=== PATIENT | female | born 1955 | race Caucasian/White ===

== ENCOUNTER 2017-08-14 12:23 | Inpatient (IN) | payer MEDICARE, MEDICAID ==
--- NOTE | 2017-08-14 12:39 | ED Physician Chart ---
ED Chief Complaint/HPI - Patient Information Date Seen:: 08/14/17 Time Seen:: 12:15 Chief Complaint:: Agitation History of Present Illness:: onset x 2 days of agitation and aggressive behavior; no report of trauma, SIs, H /As, S/T, neck pain, C/P, SOB, Abd. Pain, A/N/V/D/C, fever, chills, or urinary s /s Historian:: Patient, EMS Review:: Nurse's Note Reviewed, Old Chart Reviewed, EMS run form Reviewed ED Review of Systems - Review of Systems General/Constitutional: No fever, No chills, No weight loss, No weakness, No diaphoresis, No edema, No loss of appetite Skin: No skin lesions, No rash, No bruising Head: No headache, No light-headedness Eyes: No loss of vision, No pain, No diplopia ENT: No earache, No nasal drainage, No sore throat, No tinnitus Neck: No neck pain, No swelling, No thyromegaly, No stiffness, No mass noted Cardio Vascular: No chest pain, No palpitations, No PND, No orthopnea, No edema Pulmonary: No SOB, No cough, No sputum, No wheezing GI: No nausea, No vomiting, No diarrhea, No pain, No melena, No hematochezia, No constipation, No hematemesis G/U: No dysuria, No frequency, No hematuria, No nacturia Personal Shopper: No vaginal discharge, No abnormal vaginal bleed, No contraction Musculoskeletal: No bone or joint pain, No back pain, No muscle pain Endocrine: No polyuria, No polydipsia Psychiatric: Prior psych history, Depression, Anxiety, No suicidal ideation, No homicidal ideation, No auditory hallucination, No visual hallucination Hematopoietic: No bruising, No lymphadenopathy Allergic/Immuno: No urticaria, No angioedema Neurological: No syncope, No focal symptoms, No weakness, No paresthesia, No headache, No seizure, No dizziness, No confusion, No vertigo ED Past Medical History - Past Medical History Obtainable: Yes Past Medical History: HTN, DM, Dyslipidemia Family History: HTN Social History: Non Smoker, No Alcohol, No Drug Use, Single, Care Facility Surgical History: None Psychiatricy History: Depression, Bipolar Medication: Reviewed Family Medical History - Family Member Mother Brother History Unknown: Yes Ethnicity: Non- Living Status: Unknown ED Physical Exam - Physical Examination General/Constitutional: Awake, Well-developed, well-nourished, Alert, No distress, GCS 15, Non-toxic appearing, Ambulatory Head: Atraumatic Eyes: Lids, conjuctiva normal, PERRL, EOMI Skin: Nl inspection, No rash, No skin lesions, No ecchymosis, Well hydrated, No lymphadenopathy ENMT: External ears, nose nl, TM canals nl, Nasal exam nl, Lips, teeth, gums nl , Oropharynx nl, Tonsils nl Neck: Nontender, Full ROM w/o pain, No JVD, No nuchal rigidity, No bruit, No mass, No stridor Respiratory: Nl effort/Exclusion, Clear to Auscultation, No Wheeze/Rhonchi/Rales Cardio Vascular: RRR, No murmur, gallop, rubs, NL S1 S2, Carotid/Femoral/Distal pulses equal bilaterally GI: No tenderness/rebounding/guarding, No organomegaly, No hernia, Normal BS's, Nondistended, No mass/bruits, No McBurney tenderness Other GI comments:: no pulsatile masses : No CVA tenderness Extremities: No tenderness or effusion, Full ROM, normal strength in all extremities, No edema, Normal digits & nails Neuro/Psych: Alert/oriented, DTR's symmetric, Normal sensory exam, Normal motor strength, Judgement/insight normal, Mood normal, Normal gait, No focal deficits Other Neuro/Psych comments:: + Psychomotor Agitation; no SIs; Mood/Affect: Labile Misc: Normal back, No paraspinal tenderness ED Labs/Radiology/EKG Results - Lab Results Comments:: Glucose: 259 - EKG Interpretations EKG Time:: 12:40 Rate & Rhythm: 78; NSR Comments:: RBBB; non-specific st-t changes ED Septic Shock - . Is Septic Shock (SBP<90, OR Lactate>4 mmol\L) present?: No ED Reassessment (Disposition) - Diagnosis Diagnosis:: Dx: Agitation; Psychosis; Medical Clearance; Bipolar Disorder - Aftercare/Follow up Instructions Aftercare/Follow-Up Instructions:: Counseled pt regarding lab results/diagnosis & need follow up, Counseled pt & family regarding lab results/diagnosis & need follow up - Patient Disposition Discharge/Transfer:: Acute Care w/in this hosp Admitted to:: [facility] Condition at Disposition:: Stable, Improved
[2017-08-14 12:55] LABS: % BASOPHILS 0.9 % (0.0-2.0); % EOSINOPHILS 2.7 % (0.0-5.0); % LYMPHOCYTES 19.5 % (20.0-50.0); % MONOCYTES 4.8 % (2.0-10.0); % NEUTROPHILS 72.1 % (40.0-80.0); BASOPHILE ABSOLUTE 0.1 Th/cumm (0-0.2); EOSINOPHILE ABSOLUTE 0.2 Th/cmm (0.1-0.4); HEMATOCRIT 42.3 % (41.0-60); HEMOGLOBIN 14.1 gm/dL (12-16); LYMPHOCYTE ABSOLUTE 1.8 Th/cmm (1.5-3.0); MEAN CORPUSCULAR HGB CONC 33.4 pg (28.0-36.0); MONOCYTE ABSOLUTE 0.4 Th/cmm (0.3-1.0); NEUTROPHILE ABSOLUTE 6.7 Th/cmm (1.8-8.0); PLATELET COUNT 243 Th/cmm (150-400); RED BLOOD COUNT 5.22 Mil/cmm (3.80-5.10); RED CELL DISTRIBUTION WIDTH 12.6 % (11.5-20.0); WHITE BLOOD COUNT 9.2 Th/cmm (4.8-10.8)
[2017-08-14 13:17] LABS: ACETAMINOPHEN < 10.0 ug/mL (10.0-30.0); ALB/GLOB RATIO 0.9 (1.0-1.8); ALBUMIN 3.4 gm/dL (3.7-5.3); ALKALINE PHOSPHATASE 99 U/L (34-104); ANION GAP 10.7 (7.0-16.0); BILIRUBIN,TOTAL 0.3 mg/dL (0.3-1.0); BUN - UREA NITROGEN 20 mg/dL (7-25); CALCIUM SERUM 9.5 mg/dL (8.6-10.3); CARBON DIOXIDE 26.5 mEq/L (21.0-31.0); CHLORIDE 101 mEq/L (98-107); CHOLESTEROL 104 mg/dL (<200); GFR AFRICAN-AMERICAN > 60.0 ml/min (>90); GFR NON AFRICAN-AMERICAN 59.9 ml/min; GLUCOSE 259 mg/dL (70-105); HDL -HIGH DENSITY LIPOPROTEIN 35 mg/dL (23-92); POTASSIUM SERUM 4.2 mEq/L (3.5-5.1); SALICYLATES (ASPIRIN) < 25.0 mg/L (30.0-100.0); SGOT 40 U/L (13-39); SGPT/ALT 42 U/L (7-52); SODIUM SERUM 134 mEq/L (136-145); TRIGLYCERIDES 128 mg/dL (<150)
[2017-08-14 14:57] LABS: URINE MICROSCOPIC INDICATED? YES; URINE SOURCE CLEAN C
[2017-08-14 15:22] LABS: URINE BILIRUBIN NEGATIVE (NEGATIVE); URINE BLOOD NEGATIVE (NEGATIVE); URINE GLUCOSE (UA) NEGATIVE (NEGATIVE); URINE KETONE NEGATIVE (NEGATIVE); URINE LEUKOCYTE ESTERASE NEGATIVE (NEGATIVE); URINE NITRATE NEGATIVE (NEGATIVE); URINE PROTEIN NEGATIVE (NEGATIVE); URINE UROBILINOGEN 0.2 E.U./dL (0.2 - 1.0)
[2017-08-14 15:23] LABS: AMPHETAMINE URINE NEGATIVE (NEGATIVE); BARBITURATES URINE NEGATIVE (NEGATIVE); BENZODIAZEPINES QUAL URINE NEGATIVE (NEGATIVE); CANNABINOID THC NEGATIVE (NEGATIVE); COCAINE METABOLITE QUAL URINE NEGATIVE (NEGATIVE); METHADONE URINE NEGATIVE (NEGATIVE); METHAMPHETAMINES QUAL URINE NEGATIVE (NEGATIVE); OPIATES (MORPHINE) QUAL. URINE NEGATIVE (NEGATIVE); PHENCYCLIDINE (PCP) URINE NEGATIVE (NEGATIVE); TRICYCLICS (TCA) QUAL. URINE NEGATIVE (NEGATIVE)
[2017-08-14 15:26] LABS: URINE CLARITY CLEAR (CLEAR); URINE COLOR YELLOW
[2017-08-14 15:27] LABS: URINE BACTERIA NONE SEEN /hpf (NONE SEEN); URINE EPITHELIAL CELLS RARE /lpf (FEW); URINE RBC 0-2 /hpf (0-5); URINE WBC 0-2 /hpf (0-5)
[2017-08-14 15:29] VITALS: BP 156/71
[2017-08-14] MEDS ORDERED: Maalox 30 mL Cup PO PRN (15:29)
[2017-08-14] MEDS ORDERED: Magnesium Hydroxide (MOM) 30 mL UDC PO PRN (15:29)
[2017-08-14 20:42] LABS: A1C % 11.1 % (4.0-6.0)
[2017-08-14] MEDS ORDERED: INSULIN ASPART SLIDING SCALE 100 UNITS/ML UNIT SUBQ SCH (21:00)
--- NOTE | 2017-08-14 21:09 | History & Physical ---
ADMIT DATE: HISTORY OF PRESENT ILLNESS: The patient is a 61-year-old female with long history of diabetes mellitus, psychosis, admitted to [facility] with agitation. The patient is admitted to [facility] under Dr. Cabral's service for more evaluation and treatment. There is no fever, no chills, no nausea, no vomiting. The patient is a poor historian. PAST MEDICAL HISTORY: Significant for diabetes mellitus and psychosis. PAST SURGICAL HISTORY: No recent surgery. ALLERGIES: None. MEDICATIONS: Follow admission reconciliation. SOCIAL HISTORY: No smoking, no alcohol, no drug. FAMILY HISTORY: Noncontributory. REVIEW OF SYSTEMS: RENAL SYSTEM: No history of chronic renal disorder. CARDIOVASCULAR SYSTEM: No coronary artery disease. ENDOCRINE SYSTEM: No diabetes or thyroid problem. GASTROINTESTINAL SYSTEM: No upper or lower gastrointestinal bleed. NEUROLOGICAL SYSTEM: Seizure disorder. SKELETOMUSCULAR SYSTEM: No muscular dystrophy. HEMATOLOGIC SYSTEM: No bleeding tendency. RESPIRATORY SYSTEM: No asthma. GENITOURINARY SYSTEM: No dysuria or hematuria. PHYSICAL EXAMINATION: GENERAL: She is awake, alert, not coherent. VITAL SIGNS: Temperature 96.8, heart rate 88, blood pressure 156/71. HEENT: Normocephalic. Pupils reactive to light and accommodation. Sclerae clear. NECK: Supple. Negative for lymphadenopathy, JVD or bruit. CHEST: Air entry bilaterally normal. No rales, rhonchi or wheezing. HEART: S1, S2 normal. No murmur. No gallop rhythm. ABDOMEN: Soft, bowel sounds positive. EXTREMITIES: No edema. NEUROLOGIC: She is awake, alert, confused. LABORATORY DATA: White blood cells 9.2, hemoglobin 14.1, hematocrit 42.3, platelet 243. Sodium 134, potassium 4.2, BUN 20, creatinine 1.0, glucose 257. ASSESSMENT: 1. Diabetes mellitus. 2. Hypertension. 3. Psychosis. PLAN: The patient admitted to [facility] under Dr. Cabral's service. PROBLEMS ADDRESSED DURING HOSPITALIZATION: Psychosis. PROBLEMS ADDRESSED AT DISCHARGE: Diabetes mellitus. The patient is medically stable for activity. Thank you, Dr. Cabral, for asking me to see your patient. JOB# [id number]
[2017-08-14] MEDS: INSULIN ASPART SLIDING SCALE 100 UNITS/ML UNIT SUBQ SCH (21:28)
[2017-08-14] MEDS: Insulin Detemir 100 units/mL 10mL Vial SUBQ SCH (21:29)
--- NOTE | 2017-08-14 22:42 | Psychosocial Evaluation ---
DATE OF SERVICE: 08/14/2017 PSYCHIATRIC EVALUATION IDENTIFYING DATA: The patient is a 61-year-old woman, resident of [facility]. Information obtained by directly interviewing the patient as well as reviewing the admission papers and they are reliable. JUSTIFICATION FOR HOSPITALIZATION: The patient is admitted here on a voluntary basis in view of her acute psychosis. CHIEF COMPLAINT: "I do not know." HISTORY OF PRESENT ILLNESS: This is the first psychiatric hospitalization to [facility] for this patient who is reported to have been a resident of the [facility] and has been diagnosed to have schizophrenia, chronic paranoid type for a long period of time. During the hospitalization, the patient is reported to have been verbally abusive and agitated and could not be contained at a lower level of care and the patient has been brought over here for stabilization. Prior to the hospitalization, the patient is reported to have been followed up by Dr. Pablo at [facility] and has been on Zyprexa 10 mg and the patient has been compliant with the medications. PAST PSYCHIATRIC HISTORY: Details are not known. MEDICAL HISTORY: Physical examination is requested and done by Dr. Ramesh. SUBSTANCE ABUSE HISTORY: None. PHYSICAL AND SEXUAL ABUSE HISTORY: None. LEGAL PROBLEMS: None at this time. STRENGTH AND ASSETS: The patient is motivated. MENTAL STATUS EXAMINATION: The patient is a 61-year-old morbidly obese, superficially cooperative. Eye contact is poor. Mood is noted to be irritable. Affect is constricted. Insight and judgment at this time are noted to be very much impaired. Impulse control is noted to be limited. The patient is still testing the limits. The patient is actively responding to internal stimuli. The patient is not able to contract for safety. The patient is reported to have been in a conservatorship. The patient at this time is not able to contract for safety. The patient is screaming and yelling and has been getting easily agitated and verbally abusive towards the staff members. The patient has no insight into his illness. The patient's short and long-term memory are noted to be fair at this time. DIAGNOSTIC IMPRESSION: AXIS I: Schizophrenia, chronic paranoid type with acute exacerbation. AXIS II: None. AXIS III: As per Dr. Ramesh. IMMEDIATE TREATMENT PLAN: The patient is going to be observed on the inpatient unit, provided with supportive psychotherapy. ESTIMATED LENGTH OF STAY: 5-7 days. DISCHARGE CRITERIA: When she is no longer a threat to self or others and be able to cope up with the stress. [facility]# [id number]
[2017-08-15] MEDS: INSULIN ASPART SLIDING SCALE 100 UNITS/ML UNIT SUBQ SCH ×4 (07:04→21:55)
[2017-08-15] MEDS: Multivitamin Tab PO SCH (09:54)
[2017-08-15] MEDS: Aspirin 81mg Chewable Tab PO SCH (09:54)
[2017-08-15] MEDS: Benztropine 1 MG TAB PO SCH ×2 (10:00→17:55)
--- NOTE | 2017-08-15 15:24 | Progress Notes ---
DATE: 08/15/2017 SUBJECTIVE: Staff was spoken to. The patient is interviewed. Mood is noted to be irritable. Affect is constricted. Insight and judgment at this time are noted to be still impaired. Impulse control is noted to be limited. Coping skills are noted to be limited. The patient is actively responding to internal stimuli. The patient is refusing the blood sugar check and the patient has no insight into her illness. The patient is going on a tangent and is demanding that she should be discharged from here. The patient is very agitated at this time and hence it is decided to give 50 of Haldol, 50 of Benadryl and Ativan 1 in case if she is getting out of control. JOB# [id number]
--- NOTE | 2017-08-15 15:31 | Internal Medicine Prog Note ---
Internal Medicine Subjective - Subjective Service Date: 08/15/17 Patient is:: awake, in bed, confused Per staff patient has:: no adverse event Internal Medicine Objective - Results Result Diagrams: 08/14/17 12:45 08/14/17 12:45 Recent Labs: Laboratory Last Values WBC 9.2 Th/cmm (4.8-10.8) 08/14/17 12:45 RBC 5.22 Mil/cmm (3.80-5.10) H 08/14/17 12:45 Hgb 14.1 gm/dL (12-16) 08/14/17 12:45 Hct 42.3 % (41.0-60) 08/14/17 12:45 MCV 81.0 fl (81-100) 08/14/17 12:45 MCH 27.0 pg (27.0-31.0) 08/14/17 12:45 MCHC Differential 33.4 pg (28.0-36.0) 08/14/17 12:45 RDW 12.6 % (11.5-20.0) 08/14/17 12:45 Plt Count 243 Th/cmm (150-400) 08/14/17 12:45 MPV 7.0 fl 08/14/17 12:45 Neutrophils % 72.1 % (40.0-80.0) 08/14/17 12:45 Lymphocytes % 19.5 % (20.0-50.0) L 08/14/17 12:45 Monocytes % 4.8 % (2.0-10.0) 08/14/17 12:45 Eosinophils % 2.7 % (0.0-5.0) 08/14/17 12:45 Basophils % 0.9 % (0.0-2.0) 08/14/17 12:45 Sodium 134 mEq/L (136-145) L 08/14/17 12:45 Potassium 4.2 mEq/L (3.5-5.1) 08/14/17 12:45 Chloride 101 mEq/L (98-107) 08/14/17 12:45 Carbon Dioxide 26.5 mEq/L (21.0-31.0) 08/14/17 12:45 Anion Gap 10.7 (7.0-16.0) 08/14/17 12:45 BUN 20 mg/dL (7-25) 08/14/17 12:45 Creatinine 1.0 mg/dL (0.6-1.2) 08/14/17 12:45 Est GFR ( Amer) > 60.0 ml/min (>90) 08/14/17 12:45 Est GFR (Non-Af Amer) 59.9 ml/min 08/14/17 12:45 BUN/Creatinine Ratio 20.0 08/14/17 12:45 Glucose 259 mg/dL (70-105) H 08/14/17 12:45 POC Glucose 225 MG/DL (70 - 105) H 08/15/17 11:30 Hemoglobin A1c % 11.1 % (4.0-6.0) H 08/14/17 12:45 Calcium 9.5 mg/dL (8.6-10.3) 08/14/17 12:45 Total Bilirubin 0.3 mg/dL (0.3-1.0) 08/14/17 12:45 AST 40 U/L (13-39) H 08/14/17 12:45 ALT 42 U/L (7-52) 08/14/17 12:45 Alkaline Phosphatase 99 U/L (34-104) 08/14/17 12:45 Total Protein 7.0 gm/dL (6.0-8.3) 08/14/17 12:45 Albumin 3.4 gm/dL (3.7-5.3) L 08/14/17 12:45 Globulin 3.6 gm/dL 08/14/17 12:45 Albumin/Globulin Ratio 0.9 (1.0-1.8) L 08/14/17 12:45 Triglycerides 128 mg/dL (<150) 08/14/17 12:45 Cholesterol 104 mg/dL (<200) 08/14/17 12:45 LDL Cholesterol Direct 57 mg/dL (75-193) L 08/14/17 12:45 HDL Cholesterol 35 mg/dL (23-92) 08/14/17 12:45 TSH 3.25 uIU/ml (0.34-5.60) 08/14/17 12:45 Urine Source CLEAN C 08/14/17 13:50 Urine Color YELLOW 08/14/17 13:50 Urine Clarity CLEAR (CLEAR) 08/14/17 13:50 Urine pH 6.0 (4.6 - 8.0) 08/14/17 13:50 Ur Specific [place] 1.010 (1.005-1.030) 08/14/17 13:50 Urine Protein NEGATIVE mg/dL (NEGATIVE) 08/14/17 13:50 Urine Glucose (UA) NEGATIVE mg/dL (NEGATIVE) 08/14/17 13:50 Urine Ketones NEGATIVE mg/dL (NEGATIVE) 08/14/17 13:50 Urine Blood NEGATIVE (NEGATIVE) 08/14/17 13:50 Urine Nitrate NEGATIVE (NEGATIVE) 08/14/17 13:50 Urine Bilirubin NEGATIVE (NEGATIVE) 08/14/17 13:50 Urine Urobilinogen 0.2 E.U./dL (0.2 - 1.0) 08/14/17 13:50 Ur Leukocyte Esterase NEGATIVE (NEGATIVE) 08/14/17 13:50 Urine RBC 0-2 /hpf (0-5) 08/14/17 13:50 Urine WBC 0-2 /hpf (0-5) 08/14/17 13:50 Ur Epithelial Cells RARE /lpf (FEW) 08/14/17 13:50 Urine Bacteria NONE SEEN /hpf (NONE SEEN) 08/14/17 13:50 Salicylates < 25.0 mg/L (30.0-100.0) L 08/14/17 12:45 Urine Opiates Screen NEGATIVE (NEGATIVE) 08/14/17 13:50 Urine Methadone Screen NEGATIVE (NEGATIVE) 08/14/17 13:50 Acetaminophen < 10.0 ug/mL (10.0-30.0) L 08/14/17 12:45 Ur Barbiturates Screen NEGATIVE (NEGATIVE) 08/14/17 13:50 Ur Tricyclics Screen NEGATIVE (NEGATIVE) 08/14/17 13:50 Ur Phencyclidine Scrn NEGATIVE (NEGATIVE) 08/14/17 13:50 Amphetamines Screen NEGATIVE (NEGATIVE) 08/14/17 13:50 U Methamphetamines Scrn NEGATIVE (NEGATIVE) 08/14/17 13:50 U Benzodiazepines Scrn NEGATIVE (NEGATIVE) 08/14/17 13:50 U Cocaine Metab Screen NEGATIVE (NEGATIVE) 08/14/17 13:50 U Cannabinoids Screen NEGATIVE (NEGATIVE) 08/14/17 13:50 Ethyl Alcohol < 10 mg/dL (0-10) 08/14/17 12:45 - Physical Exam Vitals and I&O: Vital Signs Temp 97.2 F 08/15/17 05:57 Pulse 73 08/15/17 09:54 Resp 20 08/15/17 05:57 BP 123/74 08/15/17 09:54 Pulse Ox 97 08/15/17 05:57 Intake & Output 08/14/17 08/15/17 08/15/17 18:59 06:59 18:59 Intake Total 450 660 Balance 450 660 Weight (lbs) 136.078 kg Intake: Oral 450 660 Other: # Voids 2 Weight Source Estimated Active Medications: Current Medications Acetaminophen (Tylenol) 650 mg PO Q4HR PRN PRN Reason: Mild Pain / Temp above 100 Stop: 10/13/17 15:28 Al Hydrox/Mg Hydrox/Simethicone (Maalox) 30 ml PO Q4HR PRN PRN Reason: GI DISTRESS Stop: 10/13/17 15:28 Aspirin (Aspirin Chewable) 81 mg PO DAILY [facility] Stop: 10/14/17 08:59 Last Admin: 08/15/17 09:54 Dose: 81 mg Benztropine Mesylate (Cogentin) 1 mg PO BID [facility] Stop: 10/14/17 08:59 Last Admin: 08/15/17 10:00 Dose: 1 mg Docusate Sodium (Colace) 100 mg PO BID [facility] Stop: 10/14/17 08:59 Last Admin: 08/15/17 09:53 Dose: 100 mg Glipizide (Glucotrol) 5 mg PO BIDWM [facility] Stop: 10/14/17 07:59 Last Admin: 08/15/17 09:00 Dose: 5 mg Insulin Aspart (Novolog Insulin Sliding Scale) 0 units SUBQ ACHS [facility]; Protocol Stop: 10/13/17 20:59 Last Admin: 08/15/17 11:40 Dose: 6 units Insulin Detemir (Levemir Insulin) 25 units SUBQ HS [facility]; Protocol Stop: 10/13/17 20:59 Last Admin: 08/14/17 21:29 Dose: 25 units Lorazepam (Ativan) 0.5 mg PO Q4HR PRN; Protocol PRN Reason: anxiety Stop: 10/13/17 15:33 Magnesium Hydroxide (Milk Of Magnesia) 30 ml PO HS PRN PRN Reason: Constipation Multivitamins/Vitamin C (Theragran) 1 tab PO DAILY [facility] Stop: 10/14/17 08:59 Last Admin: 08/15/17 09:54 Dose: 1 tab Olanzapine (Zyprexa) 10 mg PO Q12HR [facility]; Protocol Stop: 10/13/17 20:59 Sitagliptin Phosphate (Januvia) 25 mg PO DAILY [facility] Stop: 10/14/17 08:59 Last Admin: 08/15/17 09:53 Dose: 25 mg Valsartan (Diovan) 80 mg PO DAILY [facility] Stop: 10/14/17 08:59 Last Admin: 08/15/17 09:54 Dose: 80 mg Zolpidem Tartrate (Ambien) 5 mg PO HS PRN PRN Reason: Insomnia Stop: 10/13/17 15:28 Last Admin: 08/14/17 21:32 Dose: 5 mg General: demented HEENT: PERRLA, EOMI, anicteric sclerae, throat clear Neck: Supple, No JVD, No thyromegaly, +2 carotid pulse wo bruit, No LAD Lungs: CTAB Cardiovascular: RRR, Normal S1, Normal S2, without murmur Abdomen: non-tender, non-distended Extremities: clear Neurological: no change Internal Medicine Assmt/Plan - Assessment Assessment: 1.DM. 2.HTN. 3.DEMENTIA. - Plan Plan: CONTINUE ON CURRENT MEDICATION AND DIET.
[2017-08-15] MEDS: Insulin Detemir 100 units/mL 10mL Vial SUBQ SCH (21:56)
[2017-08-16] MEDS: INSULIN ASPART SLIDING SCALE 100 UNITS/ML UNIT SUBQ SCH ×3 (06:52→22:26)
[2017-08-16] MEDS: Multivitamin Tab PO SCH (09:44)
[2017-08-16] MEDS: Benztropine 1 MG TAB PO SCH ×2 (09:44→16:36)
[2017-08-16] MEDS: Aspirin 81mg Chewable Tab PO SCH (09:44)
--- NOTE | 2017-08-16 13:43 | Progress Notes ---
DATE: 08/16/2017 SUBJECTIVE: Staff was spoken to. The patient is interviewed. Mood is noted to be irritable. Affect is constricted. The patient's insight and judgment are noted to be still impaired. Impulse control is very limited. The patient has been taking her clothes off and has been lying down on the bed and actively responding to internal stimuli. The patient has no insight into her illness. The patient is screaming and yelling and getting angry at her family member for sending her over here. ASSESSMENT: The patient is still impulsive and psychotic. PLAN: To continue the patient with the supportive therapy. Encouraged the patient to verbalize the concerns rather than to act out. The patient is not ready to be discharged to a lower level of care in view of her psychosis. JOB# [id number]
--- NOTE | 2017-08-16 17:27 | Internal Medicine Prog Note ---
Internal Medicine Subjective - Subjective Service Date: 08/16/17 Patient seen and examined:: with staff Patient is:: awake, in bed, confused Per staff patient has:: no adverse event Internal Medicine Objective - Results Result Diagrams: 08/14/17 12:45 08/14/17 12:45 Recent Labs: Laboratory Last Values WBC 9.2 Th/cmm (4.8-10.8) 08/14/17 12:45 RBC 5.22 Mil/cmm (3.80-5.10) H 08/14/17 12:45 Hgb 14.1 gm/dL (12-16) 08/14/17 12:45 Hct 42.3 % (41.0-60) 08/14/17 12:45 MCV 81.0 fl (81-100) 08/14/17 12:45 MCH 27.0 pg (27.0-31.0) 08/14/17 12:45 MCHC Differential 33.4 pg (28.0-36.0) 08/14/17 12:45 RDW 12.6 % (11.5-20.0) 08/14/17 12:45 Plt Count 243 Th/cmm (150-400) 08/14/17 12:45 MPV 7.0 fl 08/14/17 12:45 Neutrophils % 72.1 % (40.0-80.0) 08/14/17 12:45 Lymphocytes % 19.5 % (20.0-50.0) L 08/14/17 12:45 Monocytes % 4.8 % (2.0-10.0) 08/14/17 12:45 Eosinophils % 2.7 % (0.0-5.0) 08/14/17 12:45 Basophils % 0.9 % (0.0-2.0) 08/14/17 12:45 Sodium 134 mEq/L (136-145) L 08/14/17 12:45 Potassium 4.2 mEq/L (3.5-5.1) 08/14/17 12:45 Chloride 101 mEq/L (98-107) 08/14/17 12:45 Carbon Dioxide 26.5 mEq/L (21.0-31.0) 08/14/17 12:45 Anion Gap 10.7 (7.0-16.0) 08/14/17 12:45 BUN 20 mg/dL (7-25) 08/14/17 12:45 Creatinine 1.0 mg/dL (0.6-1.2) 08/14/17 12:45 Est GFR ( Amer) > 60.0 ml/min (>90) 08/14/17 12:45 Est GFR (Non-Af Amer) 59.9 ml/min 08/14/17 12:45 BUN/Creatinine Ratio 20.0 08/14/17 12:45 Glucose 259 mg/dL (70-105) H 08/14/17 12:45 POC Glucose 155 MG/DL (70 - 105) H 08/15/17 17:03 Hemoglobin A1c % 11.1 % (4.0-6.0) H 08/14/17 12:45 Calcium 9.5 mg/dL (8.6-10.3) 08/14/17 12:45 Total Bilirubin 0.3 mg/dL (0.3-1.0) 08/14/17 12:45 AST 40 U/L (13-39) H 08/14/17 12:45 ALT 42 U/L (7-52) 08/14/17 12:45 Alkaline Phosphatase 99 U/L (34-104) 08/14/17 12:45 Total Protein 7.0 gm/dL (6.0-8.3) 08/14/17 12:45 Albumin 3.4 gm/dL (3.7-5.3) L 08/14/17 12:45 Globulin 3.6 gm/dL 08/14/17 12:45 Albumin/Globulin Ratio 0.9 (1.0-1.8) L 08/14/17 12:45 Triglycerides 128 mg/dL (<150) 08/14/17 12:45 Cholesterol 104 mg/dL (<200) 08/14/17 12:45 LDL Cholesterol Direct 57 mg/dL (75-193) L 08/14/17 12:45 HDL Cholesterol 35 mg/dL (23-92) 08/14/17 12:45 TSH 3.25 uIU/ml (0.34-5.60) 08/14/17 12:45 Urine Source CLEAN C 08/14/17 13:50 Urine Color YELLOW 08/14/17 13:50 Urine Clarity CLEAR (CLEAR) 08/14/17 13:50 Urine pH 6.0 (4.6 - 8.0) 08/14/17 13:50 Ur Specific [place] 1.010 (1.005-1.030) 08/14/17 13:50 Urine Protein NEGATIVE mg/dL (NEGATIVE) 08/14/17 13:50 Urine Glucose (UA) NEGATIVE mg/dL (NEGATIVE) 08/14/17 13:50 Urine Ketones NEGATIVE mg/dL (NEGATIVE) 08/14/17 13:50 Urine Blood NEGATIVE (NEGATIVE) 08/14/17 13:50 Urine Nitrate NEGATIVE (NEGATIVE) 08/14/17 13:50 Urine Bilirubin NEGATIVE (NEGATIVE) 08/14/17 13:50 Urine Urobilinogen 0.2 E.U./dL (0.2 - 1.0) 08/14/17 13:50 Ur Leukocyte Esterase NEGATIVE (NEGATIVE) 08/14/17 13:50 Urine RBC 0-2 /hpf (0-5) 08/14/17 13:50 Urine WBC 0-2 /hpf (0-5) 08/14/17 13:50 Ur Epithelial Cells RARE /lpf (FEW) 08/14/17 13:50 Urine Bacteria NONE SEEN /hpf (NONE SEEN) 08/14/17 13:50 Salicylates < 25.0 mg/L (30.0-100.0) L 08/14/17 12:45 Urine Opiates Screen NEGATIVE (NEGATIVE) 08/14/17 13:50 Urine Methadone Screen NEGATIVE (NEGATIVE) 08/14/17 13:50 Acetaminophen < 10.0 ug/mL (10.0-30.0) L 08/14/17 12:45 Ur Barbiturates Screen NEGATIVE (NEGATIVE) 08/14/17 13:50 Ur Tricyclics Screen NEGATIVE (NEGATIVE) 08/14/17 13:50 Ur Phencyclidine Scrn NEGATIVE (NEGATIVE) 08/14/17 13:50 Amphetamines Screen NEGATIVE (NEGATIVE) 08/14/17 13:50 U Methamphetamines Scrn NEGATIVE (NEGATIVE) 08/14/17 13:50 U Benzodiazepines Scrn NEGATIVE (NEGATIVE) 08/14/17 13:50 U Cocaine Metab Screen NEGATIVE (NEGATIVE) 08/14/17 13:50 U Cannabinoids Screen NEGATIVE (NEGATIVE) 08/14/17 13:50 Ethyl Alcohol < 10 mg/dL (0-10) 08/14/17 12:45 - Physical Exam Vitals and I&O: Vital Signs Temp 98.2 F 08/16/17 15:00 Pulse 86 08/16/17 15:00 Resp 18 08/16/17 15:00 BP 128/77 08/16/17 15:00 Pulse Ox 97 08/16/17 15:00 Intake & Output 08/15/17 08/16/17 08/16/17 18:59 06:59 18:59 Intake Total 1200 450 Balance 1200 450 Intake: Oral 1200 450 Other: # Voids 3 1 # Bowel Movements 1 Active Medications: Current Medications Acetaminophen (Tylenol) 650 mg PO Q4HR PRN PRN Reason: Mild Pain / Temp above 100 Stop: 10/13/17 15:28 Al Hydrox/Mg Hydrox/Simethicone (Maalox) 30 ml PO Q4HR PRN PRN Reason: GI DISTRESS Stop: 10/13/17 15:28 Aspirin (Aspirin Chewable) 81 mg PO DAILY [facility] Stop: 10/14/17 08:59 Last Admin: 08/16/17 09:44 Dose: 81 mg Benztropine Mesylate (Cogentin) 1 mg PO BID [facility] Stop: 10/14/17 08:59 Last Admin: 08/16/17 16:36 Dose: 1 mg Docusate Sodium (Colace) 100 mg PO BID [facility] Stop: 10/14/17 08:59 Last Admin: 08/16/17 16:37 Dose: 100 mg Glipizide (Glucotrol) 5 mg PO BIDWM [facility] Stop: 10/14/17 07:59 Last Admin: 08/16/17 09:44 Dose: Not Given Insulin Aspart (Novolog Insulin Sliding Scale) 0 units SUBQ ACHS [facility]; Protocol Stop: 10/13/17 20:59 Last Admin: 08/16/17 12:12 Dose: 12 units Insulin Detemir (Levemir Insulin) 25 units SUBQ HS [facility]; Protocol Stop: 10/13/17 20:59 Last Admin: 08/15/17 21:56 Dose: 25 units Lorazepam (Ativan) 0.5 mg PO Q4HR PRN; Protocol PRN Reason: anxiety Stop: 10/13/17 15:33 Last Admin: 08/15/17 17:55 Dose: 0.5 mg Magnesium Hydroxide (Milk Of Magnesia) 30 ml PO HS PRN PRN Reason: Constipation Multivitamins/Vitamin C (Theragran) 1 tab PO DAILY [facility] Stop: 10/14/17 08:59 Last Admin: 08/16/17 09:44 Dose: 1 tab Olanzapine (Zyprexa) 10 mg PO Q12HR [facility]; Protocol Stop: 10/13/17 20:59 Last Admin: 08/16/17 09:44 Dose: 10 mg Sitagliptin Phosphate (Januvia) 25 mg PO DAILY [facility] Stop: 10/14/17 08:59 Last Admin: 08/16/17 09:44 Dose: 25 mg Valsartan (Diovan) 80 mg PO DAILY [facility] Stop: 10/14/17 08:59 Last Admin: 08/16/17 09:44 Dose: Not Given Zolpidem Tartrate (Ambien) 5 mg PO HS PRN PRN Reason: Insomnia Stop: 10/13/17 15:28 Last Admin: 08/15/17 21:16 Dose: 5 mg General: demented HEENT: PERRLA, EOMI, anicteric sclerae, throat clear Neck: Supple, No JVD, No thyromegaly, +2 carotid pulse wo bruit, No LAD Lungs: CTAB Cardiovascular: RRR, Normal S1, Normal S2, without murmur Abdomen: non-tender, non-distended Extremities: clear Neurological: no change Internal Medicine Assmt/Plan - Assessment Assessment: 1.DM. 2.HTN. 3.DEMENTIA. - Plan Plan: CONTINUE ON CURRENT MEDICATION AND DIET.
[2017-08-16] MEDS: Insulin Detemir 100 units/mL 10mL Vial SUBQ SCH (22:27)
[2017-08-17] MEDS: INSULIN ASPART SLIDING SCALE 100 UNITS/ML UNIT SUBQ SCH ×5 (07:19→21:27)
[2017-08-17] MEDS: Benztropine 1 MG TAB PO SCH ×2 (08:23→17:21)
[2017-08-17] MEDS: Aspirin 81mg Chewable Tab PO SCH (08:23)
[2017-08-17] MEDS: Multivitamin Tab PO SCH (08:24)
[2017-08-17] MEDS: Insulin Detemir 100 units/mL 10mL Vial SUBQ SCH (21:28)
--- NOTE | 2017-08-17 23:31 | Internal Medicine Prog Note ---
Internal Medicine Subjective - Subjective Service Date: 08/17/17 Patient seen and examined:: without staff Patient is:: awake, in bed, confused Per staff patient has:: no adverse event Internal Medicine Objective - Results Result Diagrams: 08/14/17 12:45 08/14/17 12:45 Recent Labs: Laboratory Last Values WBC 9.2 Th/cmm (4.8-10.8) 08/14/17 12:45 RBC 5.22 Mil/cmm (3.80-5.10) H 08/14/17 12:45 Hgb 14.1 gm/dL (12-16) 08/14/17 12:45 Hct 42.3 % (41.0-60) 08/14/17 12:45 MCV 81.0 fl (81-100) 08/14/17 12:45 MCH 27.0 pg (27.0-31.0) 08/14/17 12:45 MCHC Differential 33.4 pg (28.0-36.0) 08/14/17 12:45 RDW 12.6 % (11.5-20.0) 08/14/17 12:45 Plt Count 243 Th/cmm (150-400) 08/14/17 12:45 MPV 7.0 fl 08/14/17 12:45 Neutrophils % 72.1 % (40.0-80.0) 08/14/17 12:45 Lymphocytes % 19.5 % (20.0-50.0) L 08/14/17 12:45 Monocytes % 4.8 % (2.0-10.0) 08/14/17 12:45 Eosinophils % 2.7 % (0.0-5.0) 08/14/17 12:45 Basophils % 0.9 % (0.0-2.0) 08/14/17 12:45 Sodium 134 mEq/L (136-145) L 08/14/17 12:45 Potassium 4.2 mEq/L (3.5-5.1) 08/14/17 12:45 Chloride 101 mEq/L (98-107) 08/14/17 12:45 Carbon Dioxide 26.5 mEq/L (21.0-31.0) 08/14/17 12:45 Anion Gap 10.7 (7.0-16.0) 08/14/17 12:45 BUN 20 mg/dL (7-25) 08/14/17 12:45 Creatinine 1.0 mg/dL (0.6-1.2) 08/14/17 12:45 Est GFR ( Amer) > 60.0 ml/min (>90) 08/14/17 12:45 Est GFR (Non-Af Amer) 59.9 ml/min 08/14/17 12:45 BUN/Creatinine Ratio 20.0 08/14/17 12:45 Glucose 259 mg/dL (70-105) H 08/14/17 12:45 POC Glucose 155 MG/DL (70 - 105) H 08/15/17 17:03 Hemoglobin A1c % 11.1 % (4.0-6.0) H 08/14/17 12:45 Calcium 9.5 mg/dL (8.6-10.3) 08/14/17 12:45 Total Bilirubin 0.3 mg/dL (0.3-1.0) 08/14/17 12:45 AST 40 U/L (13-39) H 08/14/17 12:45 ALT 42 U/L (7-52) 08/14/17 12:45 Alkaline Phosphatase 99 U/L (34-104) 08/14/17 12:45 Total Protein 7.0 gm/dL (6.0-8.3) 08/14/17 12:45 Albumin 3.4 gm/dL (3.7-5.3) L 08/14/17 12:45 Globulin 3.6 gm/dL 08/14/17 12:45 Albumin/Globulin Ratio 0.9 (1.0-1.8) L 08/14/17 12:45 Triglycerides 128 mg/dL (<150) 08/14/17 12:45 Cholesterol 104 mg/dL (<200) 08/14/17 12:45 LDL Cholesterol Direct 57 mg/dL (75-193) L 08/14/17 12:45 HDL Cholesterol 35 mg/dL (23-92) 08/14/17 12:45 TSH 3.25 uIU/ml (0.34-5.60) 08/14/17 12:45 Urine Source CLEAN C 08/14/17 13:50 Urine Color YELLOW 08/14/17 13:50 Urine Clarity CLEAR (CLEAR) 08/14/17 13:50 Urine pH 6.0 (4.6 - 8.0) 08/14/17 13:50 Ur Specific [place] 1.010 (1.005-1.030) 08/14/17 13:50 Urine Protein NEGATIVE mg/dL (NEGATIVE) 08/14/17 13:50 Urine Glucose (UA) NEGATIVE mg/dL (NEGATIVE) 08/14/17 13:50 Urine Ketones NEGATIVE mg/dL (NEGATIVE) 08/14/17 13:50 Urine Blood NEGATIVE (NEGATIVE) 08/14/17 13:50 Urine Nitrate NEGATIVE (NEGATIVE) 08/14/17 13:50 Urine Bilirubin NEGATIVE (NEGATIVE) 08/14/17 13:50 Urine Urobilinogen 0.2 E.U./dL (0.2 - 1.0) 08/14/17 13:50 Ur Leukocyte Esterase NEGATIVE (NEGATIVE) 08/14/17 13:50 Urine RBC 0-2 /hpf (0-5) 08/14/17 13:50 Urine WBC 0-2 /hpf (0-5) 08/14/17 13:50 Ur Epithelial Cells RARE /lpf (FEW) 08/14/17 13:50 Urine Bacteria NONE SEEN /hpf (NONE SEEN) 08/14/17 13:50 Salicylates < 25.0 mg/L (30.0-100.0) L 08/14/17 12:45 Urine Opiates Screen NEGATIVE (NEGATIVE) 08/14/17 13:50 Urine Methadone Screen NEGATIVE (NEGATIVE) 08/14/17 13:50 Acetaminophen < 10.0 ug/mL (10.0-30.0) L 08/14/17 12:45 Ur Barbiturates Screen NEGATIVE (NEGATIVE) 08/14/17 13:50 Ur Tricyclics Screen NEGATIVE (NEGATIVE) 08/14/17 13:50 Ur Phencyclidine Scrn NEGATIVE (NEGATIVE) 08/14/17 13:50 Amphetamines Screen NEGATIVE (NEGATIVE) 08/14/17 13:50 U Methamphetamines Scrn NEGATIVE (NEGATIVE) 08/14/17 13:50 U Benzodiazepines Scrn NEGATIVE (NEGATIVE) 08/14/17 13:50 U Cocaine Metab Screen NEGATIVE (NEGATIVE) 08/14/17 13:50 U Cannabinoids Screen NEGATIVE (NEGATIVE) 08/14/17 13:50 Ethyl Alcohol < 10 mg/dL (0-10) 08/14/17 12:45 - Physical Exam Vitals and I&O: Vital Signs Temp 97.7 F 08/17/17 20:07 Pulse 75 08/17/17 20:07 Resp 21 08/17/17 20:07 BP 124/60 08/17/17 20:07 Pulse Ox 93 08/17/17 20:07 Intake & Output 08/17/17 08/17/17 08/18/17 06:59 18:59 06:59 Intake Total 480 240 Balance 480 240 Intake: Oral 480 240 Other: # Voids 2 2 Active Medications: Current Medications Acetaminophen (Tylenol) 650 mg PO Q4HR PRN PRN Reason: Mild Pain / Temp above 100 Stop: 10/13/17 15:28 Al Hydrox/Mg Hydrox/Simethicone (Maalox) 30 ml PO Q4HR PRN PRN Reason: GI DISTRESS Stop: 10/13/17 15:28 Aspirin (Aspirin Chewable) 81 mg PO DAILY [facility] Stop: 10/14/17 08:59 Last Admin: 08/17/17 08:23 Dose: 81 mg Benztropine Mesylate (Cogentin) 1 mg PO BID [facility] Stop: 10/14/17 08:59 Last Admin: 08/17/17 17:21 Dose: 1 mg Docusate Sodium (Colace) 100 mg PO BID [facility] Stop: 10/14/17 08:59 Last Admin: 08/17/17 17:21 Dose: 100 mg Glipizide (Glucotrol) 5 mg PO BIDWM [facility] Stop: 10/14/17 07:59 Last Admin: 08/17/17 17:21 Dose: 5 mg Insulin Aspart (Novolog Insulin Sliding Scale) 0 units SUBQ ACHS [facility]; Protocol Stop: 10/13/17 20:59 Last Admin: 08/17/17 21:27 Dose: 12 units Insulin Detemir (Levemir Insulin) 25 units SUBQ HS [facility]; Protocol Stop: 10/13/17 20:59 Last Admin: 08/17/17 21:28 Dose: 25 units Lorazepam (Ativan) 0.5 mg PO Q4HR PRN; Protocol PRN Reason: anxiety Stop: 10/13/17 15:33 Last Admin: 08/17/17 21:01 Dose: 0.5 mg Magnesium Hydroxide (Milk Of Magnesia) 30 ml PO HS PRN PRN Reason: Constipation Multivitamins/Vitamin C (Theragran) 1 tab PO DAILY [facility] Stop: 10/14/17 08:59 Last Admin: 08/17/17 08:24 Dose: 1 tab Olanzapine (Zyprexa) 10 mg PO Q12HR [facility]; Protocol Stop: 10/13/17 20:59 Last Admin: 08/17/17 21:01 Dose: 10 mg Sitagliptin Phosphate (Januvia) 25 mg PO DAILY [facility] Stop: 10/14/17 08:59 Last Admin: 08/17/17 08:23 Dose: 25 mg Valsartan (Diovan) 80 mg PO DAILY [facility] Stop: 10/14/17 08:59 Last Admin: 08/17/17 13:26 Dose: Not Given Zolpidem Tartrate (Ambien) 5 mg PO HS PRN PRN Reason: Insomnia Stop: 10/13/17 15:28 Last Admin: 08/17/17 21:01 Dose: 5 mg General: demented HEENT: PERRLA, EOMI, anicteric sclerae, throat clear Neck: Supple, No JVD, No thyromegaly, +2 carotid pulse wo bruit, No LAD Lungs: CTAB Cardiovascular: RRR, Normal S1, Normal S2, without murmur Abdomen: non-tender, non-distended Extremities: clear Neurological: no change Internal Medicine Assmt/Plan - Assessment Assessment: 1.DM. 2.HTN. 3.DEMENTIA. - Plan Plan: CONTINUE ON CURRENT MEDICATION AND DIET.
--- NOTE | 2017-08-18 00:09 | Progress Notes ---
DATE: 08/17/2017 SUBJECTIVE: Staff was spoken to. The patient is interviewed. Mood is noted to be irritable. Affect is constricted. The patient is grossly psychotic and is responding to internal stimuli. Insight and judgment at this time are noted to be still impaired. Impulse control seems to be limited. The patient has been having difficult time to cope with the stress. ASSESSMENT: The patient is still grossly psychotic. PLAN: To continue the patient with the supportive therapy and followup. JOB# [id number]
[2017-08-18] MEDS: INSULIN ASPART SLIDING SCALE 100 UNITS/ML UNIT SUBQ SCH ×4 (06:46→21:10)
[2017-08-18] MEDS: Aspirin 81mg Chewable Tab PO SCH (09:05)
[2017-08-18] MEDS: Multivitamin Tab PO SCH (09:05)
[2017-08-18] MEDS: Benztropine 1 MG TAB PO SCH ×2 (09:05→17:20)
--- NOTE | 2017-08-18 14:03 | Internal Medicine Prog Note ---
Internal Medicine Subjective - Subjective Service Date: 08/18/17 Patient seen and examined:: with staff (SHE FEEL WELL) Patient is:: awake, in bed, confused Per staff patient has:: no adverse event Internal Medicine Objective - Results Result Diagrams: 08/14/17 12:45 08/14/17 12:45 Recent Labs: Laboratory Last Values WBC 9.2 Th/cmm (4.8-10.8) 08/14/17 12:45 RBC 5.22 Mil/cmm (3.80-5.10) H 08/14/17 12:45 Hgb 14.1 gm/dL (12-16) 08/14/17 12:45 Hct 42.3 % (41.0-60) 08/14/17 12:45 MCV 81.0 fl (81-100) 08/14/17 12:45 MCH 27.0 pg (27.0-31.0) 08/14/17 12:45 MCHC Differential 33.4 pg (28.0-36.0) 08/14/17 12:45 RDW 12.6 % (11.5-20.0) 08/14/17 12:45 Plt Count 243 Th/cmm (150-400) 08/14/17 12:45 MPV 7.0 fl 08/14/17 12:45 Neutrophils % 72.1 % (40.0-80.0) 08/14/17 12:45 Lymphocytes % 19.5 % (20.0-50.0) L 08/14/17 12:45 Monocytes % 4.8 % (2.0-10.0) 08/14/17 12:45 Eosinophils % 2.7 % (0.0-5.0) 08/14/17 12:45 Basophils % 0.9 % (0.0-2.0) 08/14/17 12:45 Sodium 134 mEq/L (136-145) L 08/14/17 12:45 Potassium 4.2 mEq/L (3.5-5.1) 08/14/17 12:45 Chloride 101 mEq/L (98-107) 08/14/17 12:45 Carbon Dioxide 26.5 mEq/L (21.0-31.0) 08/14/17 12:45 Anion Gap 10.7 (7.0-16.0) 08/14/17 12:45 BUN 20 mg/dL (7-25) 08/14/17 12:45 Creatinine 1.0 mg/dL (0.6-1.2) 08/14/17 12:45 Est GFR ( Amer) > 60.0 ml/min (>90) 08/14/17 12:45 Est GFR (Non-Af Amer) 59.9 ml/min 08/14/17 12:45 BUN/Creatinine Ratio 20.0 08/14/17 12:45 Glucose 259 mg/dL (70-105) H 08/14/17 12:45 POC Glucose 155 MG/DL (70 - 105) H 08/15/17 17:03 Hemoglobin A1c % 11.1 % (4.0-6.0) H 08/14/17 12:45 Calcium 9.5 mg/dL (8.6-10.3) 08/14/17 12:45 Total Bilirubin 0.3 mg/dL (0.3-1.0) 08/14/17 12:45 AST 40 U/L (13-39) H 08/14/17 12:45 ALT 42 U/L (7-52) 08/14/17 12:45 Alkaline Phosphatase 99 U/L (34-104) 08/14/17 12:45 Total Protein 7.0 gm/dL (6.0-8.3) 08/14/17 12:45 Albumin 3.4 gm/dL (3.7-5.3) L 08/14/17 12:45 Globulin 3.6 gm/dL 08/14/17 12:45 Albumin/Globulin Ratio 0.9 (1.0-1.8) L 08/14/17 12:45 Triglycerides 128 mg/dL (<150) 08/14/17 12:45 Cholesterol 104 mg/dL (<200) 08/14/17 12:45 LDL Cholesterol Direct 57 mg/dL (75-193) L 08/14/17 12:45 HDL Cholesterol 35 mg/dL (23-92) 08/14/17 12:45 TSH 3.25 uIU/ml (0.34-5.60) 08/14/17 12:45 Urine Source CLEAN C 08/14/17 13:50 Urine Color YELLOW 08/14/17 13:50 Urine Clarity CLEAR (CLEAR) 08/14/17 13:50 Urine pH 6.0 (4.6 - 8.0) 08/14/17 13:50 Ur Specific [place] 1.010 (1.005-1.030) 08/14/17 13:50 Urine Protein NEGATIVE mg/dL (NEGATIVE) 08/14/17 13:50 Urine Glucose (UA) NEGATIVE mg/dL (NEGATIVE) 08/14/17 13:50 Urine Ketones NEGATIVE mg/dL (NEGATIVE) 08/14/17 13:50 Urine Blood NEGATIVE (NEGATIVE) 08/14/17 13:50 Urine Nitrate NEGATIVE (NEGATIVE) 08/14/17 13:50 Urine Bilirubin NEGATIVE (NEGATIVE) 08/14/17 13:50 Urine Urobilinogen 0.2 E.U./dL (0.2 - 1.0) 08/14/17 13:50 Ur Leukocyte Esterase NEGATIVE (NEGATIVE) 08/14/17 13:50 Urine RBC 0-2 /hpf (0-5) 08/14/17 13:50 Urine WBC 0-2 /hpf (0-5) 08/14/17 13:50 Ur Epithelial Cells RARE /lpf (FEW) 08/14/17 13:50 Urine Bacteria NONE SEEN /hpf (NONE SEEN) 08/14/17 13:50 Salicylates < 25.0 mg/L (30.0-100.0) L 08/14/17 12:45 Urine Opiates Screen NEGATIVE (NEGATIVE) 08/14/17 13:50 Urine Methadone Screen NEGATIVE (NEGATIVE) 08/14/17 13:50 Acetaminophen < 10.0 ug/mL (10.0-30.0) L 08/14/17 12:45 Ur Barbiturates Screen NEGATIVE (NEGATIVE) 08/14/17 13:50 Ur Tricyclics Screen NEGATIVE (NEGATIVE) 08/14/17 13:50 Ur Phencyclidine Scrn NEGATIVE (NEGATIVE) 08/14/17 13:50 Amphetamines Screen NEGATIVE (NEGATIVE) 08/14/17 13:50 U Methamphetamines Scrn NEGATIVE (NEGATIVE) 08/14/17 13:50 U Benzodiazepines Scrn NEGATIVE (NEGATIVE) 08/14/17 13:50 U Cocaine Metab Screen NEGATIVE (NEGATIVE) 08/14/17 13:50 U Cannabinoids Screen NEGATIVE (NEGATIVE) 08/14/17 13:50 Ethyl Alcohol < 10 mg/dL (0-10) 08/14/17 12:45 - Physical Exam Vitals and I&O: Vital Signs Temp 98.2 F 08/18/17 06:43 Pulse 72 08/18/17 09:04 Resp 20 08/18/17 06:43 BP 122/82 08/18/17 09:04 Pulse Ox 95 08/18/17 06:43 Intake & Output 08/17/17 08/18/17 08/18/17 18:59 06:59 18:59 Intake Total 240 Balance 240 Intake: Oral 240 Other: # Voids 2 Active Medications: Current Medications Acetaminophen (Tylenol) 650 mg PO Q4HR PRN PRN Reason: Mild Pain / Temp above 100 Stop: 10/13/17 15:28 Al Hydrox/Mg Hydrox/Simethicone (Maalox) 30 ml PO Q4HR PRN PRN Reason: GI DISTRESS Stop: 10/13/17 15:28 Aspirin (Aspirin Chewable) 81 mg PO DAILY [facility] Stop: 10/14/17 08:59 Last Admin: 08/18/17 09:05 Dose: 81 mg Benztropine Mesylate (Cogentin) 1 mg PO BID [facility] Stop: 10/14/17 08:59 Last Admin: 08/18/17 09:05 Dose: 1 mg Docusate Sodium (Colace) 100 mg PO BID [facility] Stop: 10/14/17 08:59 Last Admin: 08/18/17 09:04 Dose: 100 mg Glipizide (Glucotrol) 5 mg PO BIDWM [facility] Stop: 10/14/17 07:59 Last Admin: 08/18/17 09:05 Dose: 5 mg Insulin Aspart (Novolog Insulin Sliding Scale) 0 units SUBQ ACHS [facility]; Protocol Stop: 10/13/17 20:59 Last Admin: 08/18/17 11:47 Dose: 6 units Insulin Detemir (Levemir Insulin) 25 units SUBQ HS [facility]; Protocol Stop: 10/13/17 20:59 Last Admin: 08/17/17 21:28 Dose: 25 units Lorazepam (Ativan) 0.5 mg PO Q4HR PRN; Protocol PRN Reason: anxiety Stop: 10/13/17 15:33 Last Admin: 08/17/17 21:01 Dose: 0.5 mg Magnesium Hydroxide (Milk Of Magnesia) 30 ml PO HS PRN PRN Reason: Constipation Multivitamins/Vitamin C (Theragran) 1 tab PO DAILY [facility] Stop: 10/14/17 08:59 Last Admin: 08/18/17 09:05 Dose: 1 tab Olanzapine (Zyprexa) 10 mg PO Q12HR [facility]; Protocol Stop: 10/13/17 20:59 Last Admin: 08/18/17 09:04 Dose: 10 mg Sitagliptin Phosphate (Januvia) 25 mg PO DAILY [facility] Stop: 10/14/17 08:59 Last Admin: 08/18/17 09:04 Dose: 25 mg Valsartan (Diovan) 80 mg PO DAILY [facility] Stop: 10/14/17 08:59 Last Admin: 08/18/17 09:04 Dose: 80 mg Zolpidem Tartrate (Ambien) 5 mg PO HS PRN PRN Reason: Insomnia Stop: 10/13/17 15:28 Last Admin: 08/17/17 21:01 Dose: 5 mg General: demented HEENT: PERRLA, EOMI, anicteric sclerae, throat clear Neck: Supple, No JVD, No thyromegaly, +2 carotid pulse wo bruit, No LAD Lungs: CTAB Cardiovascular: RRR, Normal S1, Normal S2, without murmur Abdomen: non-tender, non-distended Extremities: clear Neurological: no change Internal Medicine Assmt/Plan - Assessment Assessment: 1.DM. 2.HTN. 3.DEMENTIA. - Plan Plan: CONTINUE ON CURRENT MEDICATION AND DIET.
--- NOTE | 2017-08-18 17:21 | Consultation ---
DATE OF CONSULTATION: 08/17/2017 REFERRING PHYSICIAN: Lev Cabral M.D. TYPE OF CONSULTATION: Psychology. HISTORY OF PRESENT ILLNESS: The patient is a 61-year-old female. The patient is a resident of [facility]. The patient is known to this sheet writer from that facility in 2017. The following is by record review and by patient's self-report. The patient is being admitted due to acute psychosis. The staff at the patient's facility report that the patient had become verbally abusive and easily agitated. The patient was brought here for stabilization. The patient at the time of the clinical interview was selectively mute and did not answer some of the clinical interview questions. The patient did answer the question about suicidal ideation, plan or intention and that she denied experiencing this. She was unable to contract for safety. PAST MEDICAL HISTORY: Please see history and physical by Dr. Ramesh. PAST PSYCHIATRIC HISTORY: The patient has a long history of schizophrenia, chronic paranoid type. The patient is under the care of Dr. Raul Pablo and another psychologist at her [facility] facility. SUBSTANCE ABUSE HISTORY: None. PSYCHOSOCIAL HISTORY: The patient did not answer questions about occupational or educational history or jain affiliation. The patient did not answer questions about family involvement or family support or relationships. The patient did not answer questions about history of physical or sexual abuse or legal problems at the time of this interview. MENTAL STATUS EXAMINATION: The patient appears to be her stated age. The patient is morbidly obese. Attitude is uncooperative. Eye contact is poor. Speech is selectively mute and at times loud. Mood is irritable. Affect is constricted. The patient denied any suicidal ideation, plan or intention. The patient is responding to internal stimuli. The patient is unable to verbally contract for safety. The patient seems to have some possible paranoid ideation. The patient's behavior has been easily agitated with episodes of screaming and yelling and verbally abusive towards staff members on the unit. The patient did not participate in the memory assessment. Concentration is impaired. Impulse control is inadequate. The patient did not participate in the interpretation of proverbs. Sensorium is alert and oriented to self only. Insight is impaired. Judgment is impaired. DIAGNOSTIC IMPRESSION: AXIS I: History of schizophrenia, chronic, paranoid type, in acute exacerbation. AXIS II: Deferred. AXIS III: Please see history and physical by Dr. Ramesh. TREATMENT PLAN: The patient has been seen by Dr. Cabral for psychiatric evaluation and for the management of the patient's psychotropic medications. We will provide supportive psychotherapy to include reality orientation, reality differentiation and reality integration. We will provide a simple de-escalation skill as well as limit setting and encourage the patient to appropriately verbalize her concerns versus verbally acting out or becoming aggressive with verbal outbursts towards the staff. We will provide coping strategies for chronic long-term severe mental illness. We will provide coping strategies for phase of life issues. We will encourage the patient to contract verbally for safety. We will encourage the patient to be able to demonstrate emotional and self- regulation prior to her discharge. Thank you, Dr. Cabral for this consult and the opportunity to participate with you in this patient's care. JOB# [id number] [email or web address]
[2017-08-18] MEDS: Insulin Detemir 100 units/mL 10mL Vial SUBQ SCH (21:09)
--- NOTE | 2017-08-18 22:41 | Progress Notes ---
DATE: 08/18/2017 SUBJECTIVE: Staff was spoken to. The patient is interviewed. Mood is noted to be irritable. Affect is constricted. The patient is actively responding to internal stimuli. Insight and judgment at this time are noted to be still impaired. Impulse control is noted to be poor. Coping skills are noted to be very poor. The patient is still actively responding to internal stimuli and hence it is decided to start the patient on haloperidol 2 mg twice a day and encouraged the patient to verbalize the concerns rather than to act out. Once the patient is able to tolerate the medication, the patient is going to be started on the Haldol Decanoate. JOB# [id number]
[2017-08-19] MEDS: INSULIN ASPART SLIDING SCALE 100 UNITS/ML UNIT SUBQ SCH ×4 (06:37→20:49)
[2017-08-19] MEDS: Benztropine 1 MG TAB PO SCH ×2 (09:02→17:35)
[2017-08-19] MEDS: Aspirin 81mg Chewable Tab PO SCH (09:02)
[2017-08-19] MEDS: Multivitamin Tab PO SCH (09:02)
--- NOTE | 2017-08-19 11:52 | Internal Medicine Prog Note ---
Internal Medicine Subjective - Subjective Service Date: 08/19/17 Patient seen and examined:: with staff (SHE STILL SCREEMING AND CONFUSED.) Patient is:: awake, in bed, confused Per staff patient has:: no adverse event Internal Medicine Objective - Results Result Diagrams: 08/14/17 12:45 08/14/17 12:45 Recent Labs: Laboratory Last Values WBC 9.2 Th/cmm (4.8-10.8) 08/14/17 12:45 RBC 5.22 Mil/cmm (3.80-5.10) H 08/14/17 12:45 Hgb 14.1 gm/dL (12-16) 08/14/17 12:45 Hct 42.3 % (41.0-60) 08/14/17 12:45 MCV 81.0 fl (81-100) 08/14/17 12:45 MCH 27.0 pg (27.0-31.0) 08/14/17 12:45 MCHC Differential 33.4 pg (28.0-36.0) 08/14/17 12:45 RDW 12.6 % (11.5-20.0) 08/14/17 12:45 Plt Count 243 Th/cmm (150-400) 08/14/17 12:45 MPV 7.0 fl 08/14/17 12:45 Neutrophils % 72.1 % (40.0-80.0) 08/14/17 12:45 Lymphocytes % 19.5 % (20.0-50.0) L 08/14/17 12:45 Monocytes % 4.8 % (2.0-10.0) 08/14/17 12:45 Eosinophils % 2.7 % (0.0-5.0) 08/14/17 12:45 Basophils % 0.9 % (0.0-2.0) 08/14/17 12:45 Sodium 134 mEq/L (136-145) L 08/14/17 12:45 Potassium 4.2 mEq/L (3.5-5.1) 08/14/17 12:45 Chloride 101 mEq/L (98-107) 08/14/17 12:45 Carbon Dioxide 26.5 mEq/L (21.0-31.0) 08/14/17 12:45 Anion Gap 10.7 (7.0-16.0) 08/14/17 12:45 BUN 20 mg/dL (7-25) 08/14/17 12:45 Creatinine 1.0 mg/dL (0.6-1.2) 08/14/17 12:45 Est GFR ( Amer) > 60.0 ml/min (>90) 08/14/17 12:45 Est GFR (Non-Af Amer) 59.9 ml/min 08/14/17 12:45 BUN/Creatinine Ratio 20.0 08/14/17 12:45 Glucose 259 mg/dL (70-105) H 08/14/17 12:45 POC Glucose 203 MG/DL (70 - 105) H 08/19/17 11:27 Hemoglobin A1c % 11.1 % (4.0-6.0) H 08/14/17 12:45 Calcium 9.5 mg/dL (8.6-10.3) 08/14/17 12:45 Total Bilirubin 0.3 mg/dL (0.3-1.0) 08/14/17 12:45 AST 40 U/L (13-39) H 08/14/17 12:45 ALT 42 U/L (7-52) 08/14/17 12:45 Alkaline Phosphatase 99 U/L (34-104) 08/14/17 12:45 Total Protein 7.0 gm/dL (6.0-8.3) 08/14/17 12:45 Albumin 3.4 gm/dL (3.7-5.3) L 08/14/17 12:45 Globulin 3.6 gm/dL 08/14/17 12:45 Albumin/Globulin Ratio 0.9 (1.0-1.8) L 08/14/17 12:45 Triglycerides 128 mg/dL (<150) 08/14/17 12:45 Cholesterol 104 mg/dL (<200) 08/14/17 12:45 LDL Cholesterol Direct 57 mg/dL (75-193) L 08/14/17 12:45 HDL Cholesterol 35 mg/dL (23-92) 08/14/17 12:45 TSH 3.25 uIU/ml (0.34-5.60) 08/14/17 12:45 Urine Source CLEAN C 08/14/17 13:50 Urine Color YELLOW 08/14/17 13:50 Urine Clarity CLEAR (CLEAR) 08/14/17 13:50 Urine pH 6.0 (4.6 - 8.0) 08/14/17 13:50 Ur Specific [place] 1.010 (1.005-1.030) 08/14/17 13:50 Urine Protein NEGATIVE mg/dL (NEGATIVE) 08/14/17 13:50 Urine Glucose (UA) NEGATIVE mg/dL (NEGATIVE) 08/14/17 13:50 Urine Ketones NEGATIVE mg/dL (NEGATIVE) 08/14/17 13:50 Urine Blood NEGATIVE (NEGATIVE) 08/14/17 13:50 Urine Nitrate NEGATIVE (NEGATIVE) 08/14/17 13:50 Urine Bilirubin NEGATIVE (NEGATIVE) 08/14/17 13:50 Urine Urobilinogen 0.2 E.U./dL (0.2 - 1.0) 08/14/17 13:50 Ur Leukocyte Esterase NEGATIVE (NEGATIVE) 08/14/17 13:50 Urine RBC 0-2 /hpf (0-5) 08/14/17 13:50 Urine WBC 0-2 /hpf (0-5) 08/14/17 13:50 Ur Epithelial Cells RARE /lpf (FEW) 08/14/17 13:50 Urine Bacteria NONE SEEN /hpf (NONE SEEN) 08/14/17 13:50 Salicylates < 25.0 mg/L (30.0-100.0) L 08/14/17 12:45 Urine Opiates Screen NEGATIVE (NEGATIVE) 08/14/17 13:50 Urine Methadone Screen NEGATIVE (NEGATIVE) 08/14/17 13:50 Acetaminophen < 10.0 ug/mL (10.0-30.0) L 08/14/17 12:45 Ur Barbiturates Screen NEGATIVE (NEGATIVE) 08/14/17 13:50 Ur Tricyclics Screen NEGATIVE (NEGATIVE) 08/14/17 13:50 Ur Phencyclidine Scrn NEGATIVE (NEGATIVE) 08/14/17 13:50 Amphetamines Screen NEGATIVE (NEGATIVE) 08/14/17 13:50 U Methamphetamines Scrn NEGATIVE (NEGATIVE) 08/14/17 13:50 U Benzodiazepines Scrn NEGATIVE (NEGATIVE) 08/14/17 13:50 U Cocaine Metab Screen NEGATIVE (NEGATIVE) 08/14/17 13:50 U Cannabinoids Screen NEGATIVE (NEGATIVE) 08/14/17 13:50 Ethyl Alcohol < 10 mg/dL (0-10) 08/14/17 12:45 - Physical Exam Vitals and I&O: Vital Signs Temp 98.0 F 08/19/17 06:50 Pulse 66 08/19/17 09:02 Resp 19 08/19/17 06:50 BP 139/61 08/19/17 09:02 Pulse Ox 94 08/19/17 06:50 Active Medications: Current Medications Acetaminophen (Tylenol) 650 mg PO Q4HR PRN PRN Reason: Mild Pain / Temp above 100 Stop: 10/13/17 15:28 Al Hydrox/Mg Hydrox/Simethicone (Maalox) 30 ml PO Q4HR PRN PRN Reason: GI DISTRESS Stop: 10/13/17 15:28 Aspirin (Aspirin Chewable) 81 mg PO DAILY [facility] Stop: 10/14/17 08:59 Last Admin: 08/19/17 09:02 Dose: 81 mg Benztropine Mesylate (Cogentin) 1 mg PO BID [facility] Stop: 10/14/17 08:59 Last Admin: 08/19/17 09:02 Dose: 1 mg Docusate Sodium (Colace) 100 mg PO BID [facility] Stop: 10/14/17 08:59 Last Admin: 08/19/17 09:02 Dose: 100 mg Glipizide (Glucotrol) 5 mg PO BIDWM [facility] Stop: 10/14/17 07:59 Last Admin: 08/19/17 09:01 Dose: 5 mg Haloperidol (Haldol) 2 mg PO BID [facility]; Protocol Stop: 10/18/17 08:59 Insulin Aspart (Novolog Insulin Sliding Scale) 0 units SUBQ ACHS [facility]; Protocol Stop: 10/13/17 20:59 Last Admin: 08/19/17 11:31 Dose: 6 units Insulin Detemir (Levemir Insulin) 25 units SUBQ HS [facility]; Protocol Stop: 10/13/17 20:59 Last Admin: 08/18/17 21:09 Dose: 25 units Lorazepam (Ativan) 0.5 mg PO Q4HR PRN; Protocol PRN Reason: anxiety Stop: 10/13/17 15:33 Last Admin: 08/17/17 21:01 Dose: 0.5 mg Magnesium Hydroxide (Milk Of Magnesia) 30 ml PO HS PRN PRN Reason: Constipation Multivitamins/Vitamin C (Theragran) 1 tab PO DAILY [facility] Stop: 10/14/17 08:59 Last Admin: 08/19/17 09:02 Dose: 1 tab Olanzapine (Zyprexa) 10 mg PO Q12HR [facility]; Protocol Stop: 10/13/17 20:59 Last Admin: 08/19/17 09:01 Dose: 10 mg Sitagliptin Phosphate (Januvia) 25 mg PO DAILY [facility] Stop: 10/14/17 08:59 Last Admin: 08/19/17 09:02 Dose: 25 mg Valsartan (Diovan) 80 mg PO DAILY [facility] Stop: 10/14/17 08:59 Last Admin: 08/19/17 09:02 Dose: 80 mg Zolpidem Tartrate (Ambien) 5 mg PO HS PRN PRN Reason: Insomnia Stop: 10/13/17 15:28 Last Admin: 08/18/17 21:09 Dose: 5 mg General: demented HEENT: PERRLA, EOMI, anicteric sclerae, throat clear Neck: Supple, No JVD, No thyromegaly, +2 carotid pulse wo bruit, No LAD Lungs: CTAB Cardiovascular: RRR, Normal S1, Normal S2, without murmur Abdomen: non-tender, non-distended Extremities: clear Neurological: no change Internal Medicine Assmt/Plan - Assessment Assessment: 1.DM. 2.HTN. 3.DEMENTIA. - Plan Plan: CONTINUE ON CURRENT MEDICATION AND DIET. Nutritional Asmnt/Malnutr-PDOC - Dietary Evaluation Malnutrition Findings (Please click <Entered> for more info): Nutritional Asmnt/Malnutrition Start: 08/18/17 14: 52 Text: Status: Complete Freq: Protocol: Document 08/18/17 14:52 [email or web address] (Rec: 08/18/17 15:01 [email or web address]) Nutritional Asmnt/Malnutrition Patient General Information Nutritional Screening Moderate Risk Diagnosis psychosis Pertinent Medical Hx/Surgical Hx DM, psychosis Subjective Information Pt seen sleeping in bed at time of visit. Per EMR, PO intake 100% of meals. Current Diet Order/ Nutrition Support [id number] Pertinent Medications colace, novolog, insulin, levemir, theragran Pertinent Labs 08/14 Na 134, glucose 259, POC 155-371, A1c 11.1 Nutritional Hx/Data Height 1.78 m Height (Calculated Centimeters) 177.8 Current Weight (lbs) 136.078 kg Weight (Calculated Kilograms) 136.1 Weight (Calculated Grams) 945280.7 [place] Body Weight 150 Body Mass Index (BMI) 43.0 Weight Status Obese GI Symptoms GI Symptoms None Last BM 6/2 Difficult in: None Skin Integrity/Comment: intact Current %PO Good (75-100%) Estimated Nutritional Goals BEE in Kcals: Adj wt of IBW Calories/Kcals/Kg 20-25 Kcals Calculated 2131-7671 Protein: Adj wt of IBW Protein g/k.8-1 Protein Calculated 68-85 Fluid: ml 1700-2125ml (1ml/kcal) Nutritional Problem 1. Problem Problem altered nutrition related lab Etiology hx of DM Signs/Symptoms: glucose 259, POC 155-371, A1c 11.1 Malnutrition Alert Is there a minimum of two criteria No selected? Query Text:Check all the applicable criteria. A minimum of two criteria are recommended for diagnosis of either severe or non-severe malnutrition. Malnutrition Related to Morbid Obesity Malnutrition related to morbid obesity No Intervention/Recommendation Comments 1. Continue with CCHO-60gm diet as ordered. DM to adjust insulin for optimal glycemic control. 2. Monitor PO intake, wt, labs and skin integrity 3. F/U as moderate risk in 3-5 days, 08/21-08/23 Expected Outcomes/Goals Expected Outcomes/Goals 1. PO intake to meet at least 75% of nutritional needs. 2. Wt stability, skin to remain intact, labs to approach WNL.
[2017-08-19] MEDS: Insulin Detemir 100 units/mL 10mL Vial SUBQ SCH (20:50)
--- NOTE | 2017-08-19 22:05 | Progress Notes ---
DATE: 08/19/2017 SUBJECTIVE: Staff was spoken to. The patient is interviewed. Mood is noted to be irritable. Affect is constricted. Insight and judgment are noted to be still impaired. The patient's coping skills are noted to be poor. The patient is responding to internal stimuli. The patient has been having difficult time to cope with the stress. The patient even when confronted has been denying any command hallucinations, but has been noted to be talking to self all the time. ASSESSMENT: The patient is psychotic. PLAN: To continue the patient with the Haldol and if the patient is able to tolerate the oral haloperidol, the patient is going to be given the Haldol Decanoate. JOB# [id number]
[2017-08-20] MEDS: INSULIN ASPART SLIDING SCALE 100 UNITS/ML UNIT SUBQ SCH ×4 (06:47→20:57)
[2017-08-20] MEDS: Aspirin 81mg Chewable Tab PO SCH (10:44)
[2017-08-20] MEDS: Benztropine 1 MG TAB PO SCH ×2 (10:45→18:10)
[2017-08-20] MEDS: Multivitamin Tab PO SCH (14:45)
--- NOTE | 2017-08-20 16:56 | Internal Medicine Prog Note ---
Internal Medicine Subjective - Subjective Service Date: 08/20/17 Patient seen and examined:: with staff Patient is:: awake, in bed, confused Per staff patient has:: no adverse event Internal Medicine Objective - Results Result Diagrams: 08/14/17 12:45 08/14/17 12:45 Recent Labs: Laboratory Last Values WBC 9.2 Th/cmm (4.8-10.8) 08/14/17 12:45 RBC 5.22 Mil/cmm (3.80-5.10) H 08/14/17 12:45 Hgb 14.1 gm/dL (12-16) 08/14/17 12:45 Hct 42.3 % (41.0-60) 08/14/17 12:45 MCV 81.0 fl (81-100) 08/14/17 12:45 MCH 27.0 pg (27.0-31.0) 08/14/17 12:45 MCHC Differential 33.4 pg (28.0-36.0) 08/14/17 12:45 RDW 12.6 % (11.5-20.0) 08/14/17 12:45 Plt Count 243 Th/cmm (150-400) 08/14/17 12:45 MPV 7.0 fl 08/14/17 12:45 Neutrophils % 72.1 % (40.0-80.0) 08/14/17 12:45 Lymphocytes % 19.5 % (20.0-50.0) L 08/14/17 12:45 Monocytes % 4.8 % (2.0-10.0) 08/14/17 12:45 Eosinophils % 2.7 % (0.0-5.0) 08/14/17 12:45 Basophils % 0.9 % (0.0-2.0) 08/14/17 12:45 Sodium 134 mEq/L (136-145) L 08/14/17 12:45 Potassium 4.2 mEq/L (3.5-5.1) 08/14/17 12:45 Chloride 101 mEq/L (98-107) 08/14/17 12:45 Carbon Dioxide 26.5 mEq/L (21.0-31.0) 08/14/17 12:45 Anion Gap 10.7 (7.0-16.0) 08/14/17 12:45 BUN 20 mg/dL (7-25) 08/14/17 12:45 Creatinine 1.0 mg/dL (0.6-1.2) 08/14/17 12:45 Est GFR ( Amer) > 60.0 ml/min (>90) 08/14/17 12:45 Est GFR (Non-Af Amer) 59.9 ml/min 08/14/17 12:45 BUN/Creatinine Ratio 20.0 08/14/17 12:45 Glucose 259 mg/dL (70-105) H 08/14/17 12:45 POC Glucose 294 MG/DL (70 - 105) H 08/20/17 10:37 Hemoglobin A1c % 11.1 % (4.0-6.0) H 08/14/17 12:45 Calcium 9.5 mg/dL (8.6-10.3) 08/14/17 12:45 Total Bilirubin 0.3 mg/dL (0.3-1.0) 08/14/17 12:45 AST 40 U/L (13-39) H 08/14/17 12:45 ALT 42 U/L (7-52) 08/14/17 12:45 Alkaline Phosphatase 99 U/L (34-104) 08/14/17 12:45 Total Protein 7.0 gm/dL (6.0-8.3) 08/14/17 12:45 Albumin 3.4 gm/dL (3.7-5.3) L 08/14/17 12:45 Globulin 3.6 gm/dL 08/14/17 12:45 Albumin/Globulin Ratio 0.9 (1.0-1.8) L 08/14/17 12:45 Triglycerides 128 mg/dL (<150) 08/14/17 12:45 Cholesterol 104 mg/dL (<200) 08/14/17 12:45 LDL Cholesterol Direct 57 mg/dL (75-193) L 08/14/17 12:45 HDL Cholesterol 35 mg/dL (23-92) 08/14/17 12:45 TSH 3.25 uIU/ml (0.34-5.60) 08/14/17 12:45 Urine Source CLEAN C 08/14/17 13:50 Urine Color YELLOW 08/14/17 13:50 Urine Clarity CLEAR (CLEAR) 08/14/17 13:50 Urine pH 6.0 (4.6 - 8.0) 08/14/17 13:50 Ur Specific [place] 1.010 (1.005-1.030) 08/14/17 13:50 Urine Protein NEGATIVE mg/dL (NEGATIVE) 08/14/17 13:50 Urine Glucose (UA) NEGATIVE mg/dL (NEGATIVE) 08/14/17 13:50 Urine Ketones NEGATIVE mg/dL (NEGATIVE) 08/14/17 13:50 Urine Blood NEGATIVE (NEGATIVE) 08/14/17 13:50 Urine Nitrate NEGATIVE (NEGATIVE) 08/14/17 13:50 Urine Bilirubin NEGATIVE (NEGATIVE) 08/14/17 13:50 Urine Urobilinogen 0.2 E.U./dL (0.2 - 1.0) 08/14/17 13:50 Ur Leukocyte Esterase NEGATIVE (NEGATIVE) 08/14/17 13:50 Urine RBC 0-2 /hpf (0-5) 08/14/17 13:50 Urine WBC 0-2 /hpf (0-5) 08/14/17 13:50 Ur Epithelial Cells RARE /lpf (FEW) 08/14/17 13:50 Urine Bacteria NONE SEEN /hpf (NONE SEEN) 08/14/17 13:50 Salicylates < 25.0 mg/L (30.0-100.0) L 08/14/17 12:45 Urine Opiates Screen NEGATIVE (NEGATIVE) 08/14/17 13:50 Urine Methadone Screen NEGATIVE (NEGATIVE) 08/14/17 13:50 Acetaminophen < 10.0 ug/mL (10.0-30.0) L 08/14/17 12:45 Ur Barbiturates Screen NEGATIVE (NEGATIVE) 08/14/17 13:50 Ur Tricyclics Screen NEGATIVE (NEGATIVE) 08/14/17 13:50 Ur Phencyclidine Scrn NEGATIVE (NEGATIVE) 08/14/17 13:50 Amphetamines Screen NEGATIVE (NEGATIVE) 08/14/17 13:50 U Methamphetamines Scrn NEGATIVE (NEGATIVE) 08/14/17 13:50 U Benzodiazepines Scrn NEGATIVE (NEGATIVE) 08/14/17 13:50 U Cocaine Metab Screen NEGATIVE (NEGATIVE) 08/14/17 13:50 U Cannabinoids Screen NEGATIVE (NEGATIVE) 08/14/17 13:50 Ethyl Alcohol < 10 mg/dL (0-10) 08/14/17 12:45 - Physical Exam Vitals and I&O: Vital Signs Temp 98.2 F 08/20/17 14:00 Pulse 72 08/20/17 14:46 Resp 19 08/20/17 14:00 BP 125/61 08/20/17 14:46 Pulse Ox 97 08/20/17 14:00 Intake & Output 08/19/17 08/20/17 08/20/17 18:59 06:59 18:59 Intake Total 1200 300 200 Balance 1200 300 200 Intake: Oral 1200 300 200 Other: # Voids 4 4 2 # Bowel Movements 0 0 Active Medications: Current Medications Acetaminophen (Tylenol) 650 mg PO Q4HR PRN PRN Reason: Mild Pain / Temp above 100 Stop: 10/13/17 15:28 Al Hydrox/Mg Hydrox/Simethicone (Maalox) 30 ml PO Q4HR PRN PRN Reason: GI DISTRESS Stop: 10/13/17 15:28 Aspirin (Aspirin Chewable) 81 mg PO DAILY [facility] Stop: 10/14/17 08:59 Last Admin: 08/20/17 10:44 Dose: 81 mg Benztropine Mesylate (Cogentin) 1 mg PO BID [facility] Stop: 10/14/17 08:59 Last Admin: 08/20/17 10:45 Dose: 1 mg Docusate Sodium (Colace) 100 mg PO BID [facility] Stop: 10/14/17 08:59 Last Admin: 08/20/17 10:45 Dose: 100 mg Glipizide (Glucotrol) 5 mg PO BIDWM [facility] Stop: 10/14/17 07:59 Last Admin: 08/20/17 10:44 Dose: 5 mg Haloperidol (Haldol) 2 mg PO BID [facility]; Protocol Stop: 10/19/17 08:59 Last Admin: 08/20/17 10:45 Dose: 2 mg Insulin Aspart (Novolog Insulin Sliding Scale) 0 units SUBQ ACHS [facility]; Protocol Stop: 10/13/17 20:59 Last Admin: 08/20/17 16:25 Dose: 6 units Insulin Detemir (Levemir Insulin) 25 units SUBQ HS [facility]; Protocol Stop: 10/13/17 20:59 Last Admin: 08/19/17 20:50 Dose: 25 units Lorazepam (Ativan) 0.5 mg PO Q4HR PRN; Protocol PRN Reason: anxiety Stop: 10/13/17 15:33 Last Admin: 08/17/17 21:01 Dose: 0.5 mg Magnesium Hydroxide (Milk Of Magnesia) 30 ml PO HS PRN PRN Reason: Constipation Multivitamins/Vitamin C (Theragran) 1 tab PO DAILY [facility] Stop: 10/14/17 08:59 Last Admin: 08/20/17 14:45 Dose: 1 tab Olanzapine (Zyprexa) 10 mg PO Q12HR [facility]; Protocol Stop: 10/13/17 20:59 Last Admin: 08/20/17 10:44 Dose: 10 mg Sitagliptin Phosphate (Januvia) 25 mg PO DAILY [facility] Stop: 10/14/17 08:59 Last Admin: 08/20/17 10:37 Dose: 25 mg Valsartan (Diovan) 80 mg PO DAILY [facility] Stop: 10/14/17 08:59 Last Admin: 08/20/17 14:46 Dose: 80 mg Zolpidem Tartrate (Ambien) 5 mg PO HS PRN PRN Reason: Insomnia Stop: 10/13/17 15:28 Last Admin: 08/19/17 20:49 Dose: 5 mg General: demented HEENT: PERRLA, EOMI, anicteric sclerae, throat clear Neck: Supple, No JVD, No thyromegaly, +2 carotid pulse wo bruit, No LAD Lungs: CTAB Cardiovascular: RRR, Normal S1, Normal S2, without murmur Abdomen: non-tender, non-distended Extremities: clear Neurological: no change Internal Medicine Assmt/Plan - Assessment Assessment: 1.DM. 2.HTN. 3.DEMENTIA. - Plan Plan: CONTINUE ON CURRENT MEDICATION AND DIET. Nutritional Asmnt/Malnutr-PDOC - Dietary Evaluation Malnutrition Findings (Please click <Entered> for more info): Nutritional Asmnt/Malnutrition Start: 08/18/17 14: 52 Text: Status: Complete Freq: Protocol: Document 08/18/17 14:52 [email or web address] (Rec: 08/18/17 15:01 ALEAG [email or web address]) Nutritional Asmnt/Malnutrition Patient General Information Nutritional Screening Moderate Risk Diagnosis psychosis Pertinent Medical Hx/Surgical Hx DM, psychosis Subjective Information Pt seen sleeping in bed at time of visit. Per EMR, PO intake 100% of meals. Current Diet Order/ Nutrition Support [id number] Pertinent Medications colace, novolog, insulin, levemir, theragran Pertinent Labs 08/14 Na 134, glucose 259, POC 155-371, A1c 11.1 Nutritional Hx/Data Height 1.78 m Height (Calculated Centimeters) 177.8 Current Weight (lbs) 136.078 kg Weight (Calculated Kilograms) 136.1 Weight (Calculated Grams) 996986.7 [place] Body Weight 150 Body Mass Index (BMI) 43.0 Weight Status Obese GI Symptoms GI Symptoms None Last BM 6/2 Difficult in: None Skin Integrity/Comment: intact Current %PO Good (75-100%) Estimated Nutritional Goals BEE in Kcals: Adj wt of IBW Calories/Kcals/Kg 20-25 Kcals Calculated 8092-5659 Protein: Adj wt of IBW Protein g/k.8-1 Protein Calculated 68-85 Fluid: ml 1700-2125ml (1ml/kcal) Nutritional Problem 1. Problem Problem altered nutrition related lab Etiology hx of DM Signs/Symptoms: glucose 259, POC 155-371, A1c 11.1 Malnutrition Alert Is there a minimum of two criteria No selected? Query Text:Check all the applicable criteria. A minimum of two criteria are recommended for diagnosis of either severe or non-severe malnutrition. Malnutrition Related to Morbid Obesity Malnutrition related to morbid obesity No Intervention/Recommendation Comments 1. Continue with [facility] diet as ordered. DM to adjust insulin for optimal glycemic control. 2. Monitor PO intake, wt, labs and skin integrity 3. F/U as moderate risk in 3-5 days, 08/21-08/23 Expected Outcomes/Goals Expected Outcomes/Goals 1. PO intake to meet at least 75% of nutritional needs. 2. Wt stability, skin to remain intact, labs to approach WNL.
[2017-08-20] MEDS: Insulin Detemir 100 units/mL 10mL Vial SUBQ SCH (20:57)
--- NOTE | 2017-08-21 01:46 | Progress Notes ---
DATE: 08/20/2017 PSYCHIATRIC PROGRESS NOTE SUBJECTIVE: Staff was spoken to. The patient is interviewed. Mood is noted to be irritable. Affect is constricted. Insight and judgment are noted to be still impaired. Impulse control is noted to be limited. The patient is actively responding to internal stimuli. The patient has been having difficult time to cope with the stress. The patient is responding to internal stimuli, but at the same time when we asked, the patient is denying completely that he has been hearing any voices. The patient is still having difficult time to cope with the stress and hence it is decided to place the patient on Haldol Decanoate and then placed. I encouraged the patient to verbalize the concerns rather than to act out. The patient has been placed on the Haldol orally and has been able to tolerate and hence Haldol Decanoate 50 mg is going to be given IM tomorrow and the patient is going to be followed up. JOB# [id number]
[2017-08-21] MEDS: INSULIN ASPART SLIDING SCALE 100 UNITS/ML UNIT SUBQ SCH ×4 (06:48→21:55)
[2017-08-21] MEDS: Benztropine 1 MG TAB PO SCH ×2 (09:51→16:49)
[2017-08-21] MEDS: Aspirin 81mg Chewable Tab PO SCH (09:52)
[2017-08-21] MEDS: Multivitamin Tab PO SCH (09:52)
--- NOTE | 2017-08-21 16:28 | Internal Medicine Prog Note ---
Internal Medicine Subjective - Subjective Service Date: 08/21/17 Patient seen and examined:: with staff Patient is:: awake, in bed, confused Per staff patient has:: no adverse event Internal Medicine Objective - Results Result Diagrams: 08/14/17 12:45 08/14/17 12:45 Recent Labs: Laboratory Last Values WBC 9.2 Th/cmm (4.8-10.8) 08/14/17 12:45 RBC 5.22 Mil/cmm (3.80-5.10) H 08/14/17 12:45 Hgb 14.1 gm/dL (12-16) 08/14/17 12:45 Hct 42.3 % (41.0-60) 08/14/17 12:45 MCV 81.0 fl (81-100) 08/14/17 12:45 MCH 27.0 pg (27.0-31.0) 08/14/17 12:45 MCHC Differential 33.4 pg (28.0-36.0) 08/14/17 12:45 RDW 12.6 % (11.5-20.0) 08/14/17 12:45 Plt Count 243 Th/cmm (150-400) 08/14/17 12:45 MPV 7.0 fl 08/14/17 12:45 Neutrophils % 72.1 % (40.0-80.0) 08/14/17 12:45 Lymphocytes % 19.5 % (20.0-50.0) L 08/14/17 12:45 Monocytes % 4.8 % (2.0-10.0) 08/14/17 12:45 Eosinophils % 2.7 % (0.0-5.0) 08/14/17 12:45 Basophils % 0.9 % (0.0-2.0) 08/14/17 12:45 Sodium 134 mEq/L (136-145) L 08/14/17 12:45 Potassium 4.2 mEq/L (3.5-5.1) 08/14/17 12:45 Chloride 101 mEq/L (98-107) 08/14/17 12:45 Carbon Dioxide 26.5 mEq/L (21.0-31.0) 08/14/17 12:45 Anion Gap 10.7 (7.0-16.0) 08/14/17 12:45 BUN 20 mg/dL (7-25) 08/14/17 12:45 Creatinine 1.0 mg/dL (0.6-1.2) 08/14/17 12:45 Est GFR ( Amer) > 60.0 ml/min (>90) 08/14/17 12:45 Est GFR (Non-Af Amer) 59.9 ml/min 08/14/17 12:45 BUN/Creatinine Ratio 20.0 08/14/17 12:45 Glucose 259 mg/dL (70-105) H 08/14/17 12:45 POC Glucose 195 MG/DL (70 - 105) H 08/21/17 06:34 Hemoglobin A1c % 11.1 % (4.0-6.0) H 08/14/17 12:45 Calcium 9.5 mg/dL (8.6-10.3) 08/14/17 12:45 Total Bilirubin 0.3 mg/dL (0.3-1.0) 08/14/17 12:45 AST 40 U/L (13-39) H 08/14/17 12:45 ALT 42 U/L (7-52) 08/14/17 12:45 Alkaline Phosphatase 99 U/L (34-104) 08/14/17 12:45 Total Protein 7.0 gm/dL (6.0-8.3) 08/14/17 12:45 Albumin 3.4 gm/dL (3.7-5.3) L 08/14/17 12:45 Globulin 3.6 gm/dL 08/14/17 12:45 Albumin/Globulin Ratio 0.9 (1.0-1.8) L 08/14/17 12:45 Triglycerides 128 mg/dL (<150) 08/14/17 12:45 Cholesterol 104 mg/dL (<200) 08/14/17 12:45 LDL Cholesterol Direct 57 mg/dL (75-193) L 08/14/17 12:45 HDL Cholesterol 35 mg/dL (23-92) 08/14/17 12:45 TSH 3.25 uIU/ml (0.34-5.60) 08/14/17 12:45 Urine Source CLEAN C 08/14/17 13:50 Urine Color YELLOW 08/14/17 13:50 Urine Clarity CLEAR (CLEAR) 08/14/17 13:50 Urine pH 6.0 (4.6 - 8.0) 08/14/17 13:50 Ur Specific [place] 1.010 (1.005-1.030) 08/14/17 13:50 Urine Protein NEGATIVE mg/dL (NEGATIVE) 08/14/17 13:50 Urine Glucose (UA) NEGATIVE mg/dL (NEGATIVE) 08/14/17 13:50 Urine Ketones NEGATIVE mg/dL (NEGATIVE) 08/14/17 13:50 Urine Blood NEGATIVE (NEGATIVE) 08/14/17 13:50 Urine Nitrate NEGATIVE (NEGATIVE) 08/14/17 13:50 Urine Bilirubin NEGATIVE (NEGATIVE) 08/14/17 13:50 Urine Urobilinogen 0.2 E.U./dL (0.2 - 1.0) 08/14/17 13:50 Ur Leukocyte Esterase NEGATIVE (NEGATIVE) 08/14/17 13:50 Urine RBC 0-2 /hpf (0-5) 08/14/17 13:50 Urine WBC 0-2 /hpf (0-5) 08/14/17 13:50 Ur Epithelial Cells RARE /lpf (FEW) 08/14/17 13:50 Urine Bacteria NONE SEEN /hpf (NONE SEEN) 08/14/17 13:50 Salicylates < 25.0 mg/L (30.0-100.0) L 08/14/17 12:45 Urine Opiates Screen NEGATIVE (NEGATIVE) 08/14/17 13:50 Urine Methadone Screen NEGATIVE (NEGATIVE) 08/14/17 13:50 Acetaminophen < 10.0 ug/mL (10.0-30.0) L 08/14/17 12:45 Ur Barbiturates Screen NEGATIVE (NEGATIVE) 08/14/17 13:50 Ur Tricyclics Screen NEGATIVE (NEGATIVE) 08/14/17 13:50 Ur Phencyclidine Scrn NEGATIVE (NEGATIVE) 08/14/17 13:50 Amphetamines Screen NEGATIVE (NEGATIVE) 08/14/17 13:50 U Methamphetamines Scrn NEGATIVE (NEGATIVE) 08/14/17 13:50 U Benzodiazepines Scrn NEGATIVE (NEGATIVE) 08/14/17 13:50 U Cocaine Metab Screen NEGATIVE (NEGATIVE) 08/14/17 13:50 U Cannabinoids Screen NEGATIVE (NEGATIVE) 08/14/17 13:50 Ethyl Alcohol < 10 mg/dL (0-10) 08/14/17 12:45 RPR NONREACTIVE (NONREACTIVE) 08/14/17 12:45 - Physical Exam Vitals and I&O: Vital Signs Temp 97.4 F 08/21/17 14:57 Pulse 65 08/21/17 14:57 Resp 18 08/21/17 14:57 BP 105/53 08/21/17 14:57 Pulse Ox 96 08/21/17 14:57 Intake & Output 08/20/17 08/21/17 08/21/17 18:59 06:59 18:59 Intake Total 200 480 Balance 200 480 Intake: Oral 200 480 Other: # Voids 2 2 # Bowel Movements 0 Active Medications: Current Medications Acetaminophen (Tylenol) 650 mg PO Q4HR PRN PRN Reason: Mild Pain / Temp above 100 Stop: 10/13/17 15:28 Al Hydrox/Mg Hydrox/Simethicone (Maalox) 30 ml PO Q4HR PRN PRN Reason: GI DISTRESS Stop: 10/13/17 15:28 Aspirin (Aspirin Chewable) 81 mg PO DAILY [facility] Stop: 10/14/17 08:59 Last Admin: 08/21/17 09:52 Dose: 81 mg Benztropine Mesylate (Cogentin) 1 mg PO BID [facility] Stop: 10/14/17 08:59 Last Admin: 08/21/17 09:51 Dose: 1 mg Docusate Sodium (Colace) 100 mg PO BID [facility] Stop: 10/14/17 08:59 Last Admin: 08/21/17 09:52 Dose: 100 mg Glipizide (Glucotrol) 5 mg PO BIDWM [facility] Stop: 10/14/17 07:59 Last Admin: 08/21/17 09:52 Dose: 5 mg Haloperidol (Haldol) 2 mg PO BID [facility]; Protocol Stop: 10/19/17 08:59 Last Admin: 08/21/17 10:05 Dose: 2 mg Haloperidol Decanoate (Haldol Dec) 50 mg IM QMONTH [facility]; Protocol Stop: 10/19/17 19:44 Insulin Aspart (Novolog Insulin Sliding Scale) 0 units SUBQ ACHS [facility]; Protocol Stop: 10/13/17 20:59 Last Admin: 08/21/17 16:19 Dose: Not Given Insulin Detemir (Levemir Insulin) 25 units SUBQ HS [facility]; Protocol Stop: 10/13/17 20:59 Last Admin: 08/20/17 20:57 Dose: 25 units Lorazepam (Ativan) 0.5 mg PO Q4HR PRN; Protocol PRN Reason: anxiety Stop: 10/13/17 15:33 Last Admin: 08/17/17 21:01 Dose: 0.5 mg Magnesium Hydroxide (Milk Of Magnesia) 30 ml PO HS PRN PRN Reason: Constipation Multivitamins/Vitamin C (Theragran) 1 tab PO DAILY [facility] Stop: 10/14/17 08:59 Last Admin: 08/21/17 09:52 Dose: 1 tab Olanzapine (Zyprexa) 10 mg PO Q12HR [facility]; Protocol Stop: 10/13/17 20:59 Last Admin: 08/21/17 09:55 Dose: 10 mg Sitagliptin Phosphate (Januvia) 25 mg PO DAILY [facility] Stop: 10/14/17 08:59 Last Admin: 08/21/17 09:57 Dose: 25 mg Valsartan (Diovan) 80 mg PO DAILY [facility] Stop: 10/14/17 08:59 Last Admin: 08/21/17 09:55 Dose: 80 mg Zolpidem Tartrate (Ambien) 5 mg PO HS PRN PRN Reason: Insomnia Stop: 10/13/17 15:28 Last Admin: 08/20/17 20:55 Dose: 5 mg General: demented HEENT: PERRLA, EOMI, anicteric sclerae, throat clear Neck: Supple, No JVD, No thyromegaly, +2 carotid pulse wo bruit, No LAD Lungs: CTAB Cardiovascular: RRR, Normal S1, Normal S2, without murmur Abdomen: non-tender, non-distended Extremities: clear Neurological: no change Internal Medicine Assmt/Plan - Assessment Assessment: 1.DM. 2.HTN. 3.DEMENTIA. - Plan Plan: CONTINUE ON CURRENT MEDICATION AND DIET. Nutritional Asmnt/Malnutr-PDOC - Dietary Evaluation Malnutrition Findings (Please click <Entered> for more info): Nutritional Asmnt/Malnutrition Start: 08/18/17 14: 52 Text: Status: Complete Freq: Protocol: Document 08/18/17 14:52 HUMBERTO (Rec: 08/18/17 15:01 HUMBERTO [id number]) Nutritional Asmnt/Malnutrition Patient General Information Nutritional Screening Moderate Risk Diagnosis psychosis Pertinent Medical Hx/Surgical Hx DM, psychosis Subjective Information Pt seen sleeping in bed at time of visit. Per EMR, PO intake 100% of meals. Current Diet Order/ Nutrition Support [id number] Pertinent Medications colace, novolog, insulin, levemir, theragran Pertinent Labs 08/14 Na 134, glucose 259, POC 155-371, A1c 11.1 Nutritional Hx/Data Height 1.78 m Height (Calculated Centimeters) 177.8 Current Weight (lbs) 136.078 kg Weight (Calculated Kilograms) 136.1 Weight (Calculated Grams) 143798.7 [place] Body Weight 150 Body Mass Index (BMI) 43.0 Weight Status Obese GI Symptoms GI Symptoms None Last BM / Difficult in: None Skin Integrity/Comment: intact Current %PO Good (75-100%) Estimated Nutritional Goals BEE in Kcals: Adj wt of IBW Calories/Kcals/Kg 20-25 Kcals Calculated 1052-2425 Protein: Adj wt of IBW Protein g/k.8-1 Protein Calculated 68-85 Fluid: ml 1700-2125ml (1ml/kcal) Nutritional Problem 1. Problem Problem altered nutrition related lab Etiology hx of DM Signs/Symptoms: glucose 259, POC 155-371, A1c 11.1 Malnutrition Alert Is there a minimum of two criteria No selected? Query Text:Check all the applicable criteria. A minimum of two criteria are recommended for diagnosis of either severe or non-severe malnutrition. Malnutrition Related to Morbid Obesity Malnutrition related to morbid obesity No Intervention/Recommendation Comments 1. Continue with [facility]-60 diet as ordered. DM to adjust insulin for optimal glycemic control. 2. Monitor PO intake, wt, labs and skin integrity 3. F/U as moderate risk in 3-5 days, 08/21-08/23 Expected Outcomes/Goals Expected Outcomes/Goals 1. PO intake to meet at least 75% of nutritional needs. 2. Wt stability, skin to remain intact, labs to approach WNL.
[2017-08-21] MEDS: Insulin Detemir 100 units/mL 10mL Vial SUBQ SCH (21:52)
--- NOTE | 2017-08-22 02:00 | Progress Notes ---
DATE: 08/21/2017 SUBJECTIVE: Staff was spoken to. The patient is interviewed. Mood is noted to be irritable. Affect is constricted. Insight and judgment are noted to be still impaired. Impulse control seems to be limited. The patient is still responding to internal stimuli. Coping skills are noted to be poor at this time. ASSESSMENT: The patient is still psychotic and gravely disabled. PLAN: To continue the patient with the supportive therapy. I encouraged the patient to verbalize the concerns rather than to act out. JOB# [id number]
[2017-08-22] MEDS: INSULIN ASPART SLIDING SCALE 100 UNITS/ML UNIT SUBQ SCH ×4 (06:42→20:44)
[2017-08-22] MEDS: Multivitamin Tab PO SCH (09:00)
[2017-08-22] MEDS: Aspirin 81mg Chewable Tab PO SCH (09:00)
[2017-08-22] MEDS: Benztropine 1 MG TAB PO SCH ×2 (09:01→16:46)
--- NOTE | 2017-08-22 13:42 | Progress Notes ---
DATE: 08/22/2017 SUBJECTIVE: Staff was spoken to. The patient is interviewed. Mood is noted to be irritable. Affect is constricted. The patient has paranoid delusions, but denies any command hallucinations. The patient is supposed to be given the Haldol Decanoate, but it was not given yet and the patient is going to be given the medications today and will be closely monitored the patient for psychosis. Once the patient is stabilized, the patient is going to be discharged to the facility for further followup. JOB# [id number]
--- NOTE | 2017-08-22 20:20 | General Progress Note ---
Subjective - Review of Systems Service Date: 08/22/17 Subjective: resting comfortably no distress Objective - Results Result Diagrams: 08/14/17 12:45 08/14/17 12:45 Recent Labs: Laboratory Last Values WBC 9.2 Th/cmm (4.8-10.8) 08/14/17 12:45 RBC 5.22 Mil/cmm (3.80-5.10) H 08/14/17 12:45 Hgb 14.1 gm/dL (12-16) 08/14/17 12:45 Hct 42.3 % (41.0-60) 08/14/17 12:45 MCV 81.0 fl (81-100) 08/14/17 12:45 MCH 27.0 pg (27.0-31.0) 08/14/17 12:45 MCHC Differential 33.4 pg (28.0-36.0) 08/14/17 12:45 RDW 12.6 % (11.5-20.0) 08/14/17 12:45 Plt Count 243 Th/cmm (150-400) 08/14/17 12:45 MPV 7.0 fl 08/14/17 12:45 Neutrophils % 72.1 % (40.0-80.0) 08/14/17 12:45 Lymphocytes % 19.5 % (20.0-50.0) L 08/14/17 12:45 Monocytes % 4.8 % (2.0-10.0) 08/14/17 12:45 Eosinophils % 2.7 % (0.0-5.0) 08/14/17 12:45 Basophils % 0.9 % (0.0-2.0) 08/14/17 12:45 Sodium 134 mEq/L (136-145) L 08/14/17 12:45 Potassium 4.2 mEq/L (3.5-5.1) 08/14/17 12:45 Chloride 101 mEq/L (98-107) 08/14/17 12:45 Carbon Dioxide 26.5 mEq/L (21.0-31.0) 08/14/17 12:45 Anion Gap 10.7 (7.0-16.0) 08/14/17 12:45 BUN 20 mg/dL (7-25) 08/14/17 12:45 Creatinine 1.0 mg/dL (0.6-1.2) 08/14/17 12:45 Est GFR ( Amer) > 60.0 ml/min (>90) 08/14/17 12:45 Est GFR (Non-Af Amer) 59.9 ml/min 08/14/17 12:45 BUN/Creatinine Ratio 20.0 08/14/17 12:45 Glucose 259 mg/dL (70-105) H 08/14/17 12:45 POC Glucose 272 MG/DL (70 - 105) H 08/22/17 19:55 Hemoglobin A1c % 11.1 % (4.0-6.0) H 08/14/17 12:45 Calcium 9.5 mg/dL (8.6-10.3) 08/14/17 12:45 Total Bilirubin 0.3 mg/dL (0.3-1.0) 08/14/17 12:45 AST 40 U/L (13-39) H 08/14/17 12:45 ALT 42 U/L (7-52) 08/14/17 12:45 Alkaline Phosphatase 99 U/L (34-104) 08/14/17 12:45 Total Protein 7.0 gm/dL (6.0-8.3) 08/14/17 12:45 Albumin 3.4 gm/dL (3.7-5.3) L 08/14/17 12:45 Globulin 3.6 gm/dL 08/14/17 12:45 Albumin/Globulin Ratio 0.9 (1.0-1.8) L 08/14/17 12:45 Triglycerides 128 mg/dL (<150) 08/14/17 12:45 Cholesterol 104 mg/dL (<200) 08/14/17 12:45 LDL Cholesterol Direct 57 mg/dL (75-193) L 08/14/17 12:45 HDL Cholesterol 35 mg/dL (23-92) 08/14/17 12:45 TSH 3.25 uIU/ml (0.34-5.60) 08/14/17 12:45 Urine Source CLEAN C 08/14/17 13:50 Urine Color YELLOW 08/14/17 13:50 Urine Clarity CLEAR (CLEAR) 08/14/17 13:50 Urine pH 6.0 (4.6 - 8.0) 08/14/17 13:50 Ur Specific [place] 1.010 (1.005-1.030) 08/14/17 13:50 Urine Protein NEGATIVE mg/dL (NEGATIVE) 08/14/17 13:50 Urine Glucose (UA) NEGATIVE mg/dL (NEGATIVE) 08/14/17 13:50 Urine Ketones NEGATIVE mg/dL (NEGATIVE) 08/14/17 13:50 Urine Blood NEGATIVE (NEGATIVE) 08/14/17 13:50 Urine Nitrate NEGATIVE (NEGATIVE) 08/14/17 13:50 Urine Bilirubin NEGATIVE (NEGATIVE) 08/14/17 13:50 Urine Urobilinogen 0.2 E.U./dL (0.2 - 1.0) 08/14/17 13:50 Ur Leukocyte Esterase NEGATIVE (NEGATIVE) 08/14/17 13:50 Urine RBC 0-2 /hpf (0-5) 08/14/17 13:50 Urine WBC 0-2 /hpf (0-5) 08/14/17 13:50 Ur Epithelial Cells RARE /lpf (FEW) 08/14/17 13:50 Urine Bacteria NONE SEEN /hpf (NONE SEEN) 08/14/17 13:50 Salicylates < 25.0 mg/L (30.0-100.0) L 08/14/17 12:45 Urine Opiates Screen NEGATIVE (NEGATIVE) 08/14/17 13:50 Urine Methadone Screen NEGATIVE (NEGATIVE) 08/14/17 13:50 Acetaminophen < 10.0 ug/mL (10.0-30.0) L 08/14/17 12:45 Ur Barbiturates Screen NEGATIVE (NEGATIVE) 08/14/17 13:50 Ur Tricyclics Screen NEGATIVE (NEGATIVE) 08/14/17 13:50 Ur Phencyclidine Scrn NEGATIVE (NEGATIVE) 08/14/17 13:50 Amphetamines Screen NEGATIVE (NEGATIVE) 08/14/17 13:50 U Methamphetamines Scrn NEGATIVE (NEGATIVE) 08/14/17 13:50 U Benzodiazepines Scrn NEGATIVE (NEGATIVE) 08/14/17 13:50 U Cocaine Metab Screen NEGATIVE (NEGATIVE) 08/14/17 13:50 U Cannabinoids Screen NEGATIVE (NEGATIVE) 08/14/17 13:50 Ethyl Alcohol < 10 mg/dL (0-10) 08/14/17 12:45 RPR NONREACTIVE (NONREACTIVE) 08/14/17 12:45 - Physical Exam Vitals and I&O: Vital Signs Temp 98.5 F 08/22/17 16:08 Pulse 84 08/22/17 16:08 Resp 18 08/22/17 16:08 BP 119/58 08/22/17 16:08 Pulse Ox 95 08/22/17 16:08 Intake & Output 08/22/17 08/22/17 08/23/17 06:59 18:59 06:59 Intake Total 480 1500 Balance 480 1500 Intake: Oral 480 1500 Other: # Voids 2 4 # Bowel Movements 0 Active Medications: Current Medications Acetaminophen (Tylenol) 650 mg PO Q4HR PRN PRN Reason: Mild Pain / Temp above 100 Stop: 10/13/17 15:28 Al Hydrox/Mg Hydrox/Simethicone (Maalox) 30 ml PO Q4HR PRN PRN Reason: GI DISTRESS Stop: 10/13/17 15:28 Aspirin (Aspirin Chewable) 81 mg PO DAILY [facility] Stop: 10/14/17 08:59 Last Admin: 08/22/17 09:00 Dose: 81 mg Benztropine Mesylate (Cogentin) 1 mg PO BID [facility] Stop: 10/14/17 08:59 Last Admin: 08/22/17 16:46 Dose: 1 mg Docusate Sodium (Colace) 100 mg PO BID [facility] Stop: 10/14/17 08:59 Last Admin: 08/22/17 16:46 Dose: 100 mg Glipizide (Glucotrol) 5 mg PO BIDWM [facility] Stop: 10/14/17 07:59 Last Admin: 08/22/17 17:40 Dose: 5 mg Haloperidol (Haldol) 2 mg PO BID [facility]; Protocol Stop: 10/19/17 08:59 Last Admin: 08/22/17 16:46 Dose: 2 mg Haloperidol Decanoate (Haldol Dec) 50 mg IM QMONTH [facility]; Protocol Stop: 10/19/17 19:44 Last Admin: 08/22/17 12:56 Dose: 50 mg Insulin Aspart (Novolog Insulin Sliding Scale) 0 units SUBQ ACHS [facility]; Protocol Stop: 10/13/17 20:59 Last Admin: 08/22/17 16:46 Dose: 6 units Insulin Detemir (Levemir Insulin) 25 units SUBQ HS [facility]; Protocol Stop: 10/13/17 20:59 Last Admin: 08/21/17 21:52 Dose: 25 units Lorazepam (Ativan) 0.5 mg PO Q4HR PRN; Protocol PRN Reason: anxiety Stop: 10/13/17 15:33 Last Admin: 08/17/17 21:01 Dose: 0.5 mg Magnesium Hydroxide (Milk Of Magnesia) 30 ml PO HS PRN PRN Reason: Constipation Multivitamins/Vitamin C (Theragran) 1 tab PO DAILY [facility] Stop: 10/14/17 08:59 Last Admin: 08/22/17 09:00 Dose: 1 tab Olanzapine (Zyprexa) 10 mg PO Q12HR [facility]; Protocol Stop: 10/13/17 20:59 Last Admin: 08/22/17 09:01 Dose: 10 mg Sitagliptin Phosphate (Januvia) 25 mg PO DAILY [facility] Stop: 10/14/17 08:59 Last Admin: 08/22/17 09:00 Dose: 25 mg Valsartan (Diovan) 80 mg PO DAILY [facility] Stop: 10/14/17 08:59 Last Admin: 08/22/17 09:02 Dose: 80 mg Zolpidem Tartrate (Ambien) 5 mg PO HS PRN PRN Reason: Insomnia Stop: 10/13/17 15:28 Last Admin: 08/21/17 21:56 Dose: 5 mg General: No acute distress HEENT: Atraumatic, PERRLA Neck: Supple, JVD Cardiovascular: Regular rate, Normal S1, Normal S2 Lungs: Clear to auscultation Abdomen: Bowel sounds, Soft Assessment/Plan - Assessment Assessment: 1.DM. 2.HTN. 3.DEMENTIA. - Plan Plan: cont current treatment Nutritional Asmnt/Malnutr-PDOC - Dietary Evaluation Malnutrition Findings (Please click <Entered> for more info): Nutritional Asmnt/Malnutrition Start: 08/18/17 14: 52 Text: Status: Complete Freq: Protocol: Document 08/18/17 14:52 HUMBERTO (Rec: 08/18/17 15:01 HUMBERTO [id number]) Nutritional Asmnt/Malnutrition Patient General Information Nutritional Screening Moderate Risk Diagnosis psychosis Pertinent Medical Hx/Surgical Hx DM, psychosis Subjective Information Pt seen sleeping in bed at time of visit. Per EMR, PO intake 100% of meals. Current Diet Order/ Nutrition Support [id number] Pertinent Medications colace, novolog, insulin, levemir, theragran Pertinent Labs 08/14 Na 134, glucose 259, POC 155-371, A1c 11.1 Nutritional Hx/Data Height 1.78 m Height (Calculated Centimeters) 177.8 Current Weight (lbs) 136.078 kg Weight (Calculated Kilograms) 136.1 Weight (Calculated Grams) 655197.7 [place] Body Weight 150 Body Mass Index (BMI) 43.0 Weight Status Obese GI Symptoms GI Symptoms None Last BM 6/2 Difficult in: None Skin Integrity/Comment: intact Current %PO Good (75-100%) Estimated Nutritional Goals BEE in Kcals: Adj wt of IBW Calories/Kcals/Kg 20-25 Kcals Calculated 0532-0305 Protein: Adj wt of IBW Protein g/k.8-1 Protein Calculated 68-85 Fluid: ml 1700-2125ml (1ml/kcal) Nutritional Problem 1. Problem Problem altered nutrition related lab Etiology hx of DM Signs/Symptoms: glucose 259, POC 155-371, A1c 11.1 Malnutrition Alert Is there a minimum of two criteria No selected? Query Text:Check all the applicable criteria. A minimum of two criteria are recommended for diagnosis of either severe or non-severe malnutrition. Malnutrition Related to Morbid Obesity Malnutrition related to morbid obesity No Intervention/Recommendation Comments 1. Continue with [facility]-60 diet as ordered. DM to adjust insulin for optimal glycemic control. 2. Monitor PO intake, wt, labs and skin integrity 3. F/U as moderate risk in 3-5 days, 08/21-08/23 Expected Outcomes/Goals Expected Outcomes/Goals 1. PO intake to meet at least 75% of nutritional needs. 2. Wt stability, skin to remain intact, labs to approach WNL.
[2017-08-22] MEDS: Insulin Detemir 100 units/mL 10mL Vial SUBQ SCH (20:45)
[2017-08-23] MEDS: INSULIN ASPART SLIDING SCALE 100 UNITS/ML UNIT SUBQ SCH ×4 (06:35→20:56)
[2017-08-23] MEDS: Aspirin 81mg Chewable Tab PO SCH (08:49)
[2017-08-23] MEDS: Benztropine 1 MG TAB PO SCH ×2 (08:49→17:29)
[2017-08-23] MEDS: Multivitamin Tab PO SCH (08:50)
--- NOTE | 2017-08-23 16:16 | General Progress Note ---
Subjective - Review of Systems Service Date: 08/23/17 Subjective: resting comfortably no distress Objective - Results Result Diagrams: 08/14/17 12:45 08/14/17 12:45 Recent Labs: Laboratory Last Values WBC 9.2 Th/cmm (4.8-10.8) 08/14/17 12:45 RBC 5.22 Mil/cmm (3.80-5.10) H 08/14/17 12:45 Hgb 14.1 gm/dL (12-16) 08/14/17 12:45 Hct 42.3 % (41.0-60) 08/14/17 12:45 MCV 81.0 fl (81-100) 08/14/17 12:45 MCH 27.0 pg (27.0-31.0) 08/14/17 12:45 MCHC Differential 33.4 pg (28.0-36.0) 08/14/17 12:45 RDW 12.6 % (11.5-20.0) 08/14/17 12:45 Plt Count 243 Th/cmm (150-400) 08/14/17 12:45 MPV 7.0 fl 08/14/17 12:45 Neutrophils % 72.1 % (40.0-80.0) 08/14/17 12:45 Lymphocytes % 19.5 % (20.0-50.0) L 08/14/17 12:45 Monocytes % 4.8 % (2.0-10.0) 08/14/17 12:45 Eosinophils % 2.7 % (0.0-5.0) 08/14/17 12:45 Basophils % 0.9 % (0.0-2.0) 08/14/17 12:45 Sodium 134 mEq/L (136-145) L 08/14/17 12:45 Potassium 4.2 mEq/L (3.5-5.1) 08/14/17 12:45 Chloride 101 mEq/L (98-107) 08/14/17 12:45 Carbon Dioxide 26.5 mEq/L (21.0-31.0) 08/14/17 12:45 Anion Gap 10.7 (7.0-16.0) 08/14/17 12:45 BUN 20 mg/dL (7-25) 08/14/17 12:45 Creatinine 1.0 mg/dL (0.6-1.2) 08/14/17 12:45 Est GFR ( Amer) > 60.0 ml/min (>90) 08/14/17 12:45 Est GFR (Non-Af Amer) 59.9 ml/min 08/14/17 12:45 BUN/Creatinine Ratio 20.0 08/14/17 12:45 Glucose 259 mg/dL (70-105) H 08/14/17 12:45 POC Glucose 225 MG/DL (70 - 105) H 08/23/17 06:21 Hemoglobin A1c % 11.1 % (4.0-6.0) H 08/14/17 12:45 Calcium 9.5 mg/dL (8.6-10.3) 08/14/17 12:45 Total Bilirubin 0.3 mg/dL (0.3-1.0) 08/14/17 12:45 AST 40 U/L (13-39) H 08/14/17 12:45 ALT 42 U/L (7-52) 08/14/17 12:45 Alkaline Phosphatase 99 U/L (34-104) 08/14/17 12:45 Total Protein 7.0 gm/dL (6.0-8.3) 08/14/17 12:45 Albumin 3.4 gm/dL (3.7-5.3) L 08/14/17 12:45 Globulin 3.6 gm/dL 08/14/17 12:45 Albumin/Globulin Ratio 0.9 (1.0-1.8) L 08/14/17 12:45 Triglycerides 128 mg/dL (<150) 08/14/17 12:45 Cholesterol 104 mg/dL (<200) 08/14/17 12:45 LDL Cholesterol Direct 57 mg/dL (75-193) L 08/14/17 12:45 HDL Cholesterol 35 mg/dL (23-92) 08/14/17 12:45 TSH 3.25 uIU/ml (0.34-5.60) 08/14/17 12:45 Urine Source CLEAN C 08/14/17 13:50 Urine Color YELLOW 08/14/17 13:50 Urine Clarity CLEAR (CLEAR) 08/14/17 13:50 Urine pH 6.0 (4.6 - 8.0) 08/14/17 13:50 Ur Specific [place] 1.010 (1.005-1.030) 08/14/17 13:50 Urine Protein NEGATIVE mg/dL (NEGATIVE) 08/14/17 13:50 Urine Glucose (UA) NEGATIVE mg/dL (NEGATIVE) 08/14/17 13:50 Urine Ketones NEGATIVE mg/dL (NEGATIVE) 08/14/17 13:50 Urine Blood NEGATIVE (NEGATIVE) 08/14/17 13:50 Urine Nitrate NEGATIVE (NEGATIVE) 08/14/17 13:50 Urine Bilirubin NEGATIVE (NEGATIVE) 08/14/17 13:50 Urine Urobilinogen 0.2 E.U./dL (0.2 - 1.0) 08/14/17 13:50 Ur Leukocyte Esterase NEGATIVE (NEGATIVE) 08/14/17 13:50 Urine RBC 0-2 /hpf (0-5) 08/14/17 13:50 Urine WBC 0-2 /hpf (0-5) 08/14/17 13:50 Ur Epithelial Cells RARE /lpf (FEW) 08/14/17 13:50 Urine Bacteria NONE SEEN /hpf (NONE SEEN) 08/14/17 13:50 Salicylates < 25.0 mg/L (30.0-100.0) L 08/14/17 12:45 Urine Opiates Screen NEGATIVE (NEGATIVE) 08/14/17 13:50 Urine Methadone Screen NEGATIVE (NEGATIVE) 08/14/17 13:50 Acetaminophen < 10.0 ug/mL (10.0-30.0) L 08/14/17 12:45 Ur Barbiturates Screen NEGATIVE (NEGATIVE) 08/14/17 13:50 Ur Tricyclics Screen NEGATIVE (NEGATIVE) 08/14/17 13:50 Ur Phencyclidine Scrn NEGATIVE (NEGATIVE) 08/14/17 13:50 Amphetamines Screen NEGATIVE (NEGATIVE) 08/14/17 13:50 U Methamphetamines Scrn NEGATIVE (NEGATIVE) 08/14/17 13:50 U Benzodiazepines Scrn NEGATIVE (NEGATIVE) 08/14/17 13:50 U Cocaine Metab Screen NEGATIVE (NEGATIVE) 08/14/17 13:50 U Cannabinoids Screen NEGATIVE (NEGATIVE) 08/14/17 13:50 Ethyl Alcohol < 10 mg/dL (0-10) 08/14/17 12:45 RPR NONREACTIVE (NONREACTIVE) 08/14/17 12:45 - Physical Exam Vitals and I&O: Vital Signs Temp 97.2 F 08/23/17 14:00 Pulse 82 08/23/17 14:00 Resp 18 08/23/17 14:00 BP 92/47 08/23/17 14:00 Pulse Ox 96 08/23/17 14:00 Intake & Output 08/22/17 08/23/17 08/23/17 18:59 06:59 18:59 Intake Total 1500 Balance 1500 Intake: Oral 1500 Other: # Voids 4 # Bowel Movements 0 Active Medications: Current Medications Acetaminophen (Tylenol) 650 mg PO Q4HR PRN PRN Reason: Mild Pain / Temp above 100 Stop: 10/13/17 15:28 Al Hydrox/Mg Hydrox/Simethicone (Maalox) 30 ml PO Q4HR PRN PRN Reason: GI DISTRESS Stop: 10/13/17 15:28 Aspirin (Aspirin Chewable) 81 mg PO DAILY [facility] Stop: 10/14/17 08:59 Last Admin: 08/23/17 08:49 Dose: 81 mg Benztropine Mesylate (Cogentin) 1 mg PO BID [facility] Stop: 10/14/17 08:59 Last Admin: 08/23/17 08:49 Dose: 1 mg Docusate Sodium (Colace) 100 mg PO BID [facility] Stop: 10/14/17 08:59 Last Admin: 08/23/17 08:49 Dose: 100 mg Glipizide (Glucotrol) 5 mg PO BIDWM [facility] Stop: 10/14/17 07:59 Last Admin: 08/23/17 08:49 Dose: 5 mg Haloperidol (Haldol) 2 mg PO BID [facility]; Protocol Stop: 10/19/17 08:59 Last Admin: 08/23/17 08:49 Dose: 2 mg Haloperidol Decanoate (Haldol Dec) 50 mg IM QMONTH [facility]; Protocol Stop: 10/19/17 19:44 Last Admin: 08/22/17 12:56 Dose: 50 mg Insulin Aspart (Novolog Insulin Sliding Scale) 0 units SUBQ ACHS [facility]; Protocol Stop: 10/13/17 20:59 Last Admin: 08/23/17 12:20 Dose: Not Given Insulin Detemir (Levemir Insulin) 25 units SUBQ [facility]; Protocol Stop: 10/13/17 20:59 Last Admin: 08/22/17 20:45 Dose: 25 units Lorazepam (Ativan) 0.5 mg PO Q4HR PRN; Protocol PRN Reason: anxiety Stop: 10/13/17 15:33 Last Admin: 08/17/17 21:01 Dose: 0.5 mg Magnesium Hydroxide (Milk Of Magnesia) 30 ml PO HS PRN PRN Reason: Constipation Multivitamins/Vitamin C (Theragran) 1 tab PO DAILY [facility] Stop: 10/14/17 08:59 Last Admin: 08/23/17 08:50 Dose: 1 tab Olanzapine (Zyprexa) 10 mg PO Q12HR [facility]; Protocol Stop: 10/13/17 20:59 Last Admin: 08/23/17 08:50 Dose: 10 mg Sitagliptin Phosphate (Januvia) 25 mg PO DAILY [facility] Stop: 10/14/17 08:59 Last Admin: 08/23/17 08:50 Dose: 25 mg Valsartan (Diovan) 80 mg PO DAILY [facility] Stop: 10/14/17 08:59 Last Admin: 08/23/17 12:20 Dose: Not Given Zolpidem Tartrate (Ambien) 5 mg PO HS PRN PRN Reason: Insomnia Stop: 10/13/17 15:28 Last Admin: 08/22/17 20:42 Dose: 5 mg General: No acute distress HEENT: Atraumatic, PERRLA Neck: Supple, JVD Cardiovascular: Regular rate, Normal S1, Normal S2 Lungs: Clear to auscultation Abdomen: Bowel sounds, Soft Assessment/Plan - Assessment Assessment: 1.DM. 2.HTN. 3.DEMENTIA. - Plan Plan: cont current treatment Nutritional Asmnt/Malnutr-PDOC - Dietary Evaluation Malnutrition Findings (Please click <Entered> for more info): Nutritional Asmnt/Malnutrition Start: 08/18/17 14: 52 Text: Status: Complete Freq: Protocol: Document 08/18/17 14:52 HUMBERTO (Rec: 08/18/17 15:01 [email or web address] [id number]) Nutritional Asmnt/Malnutrition Patient General Information Nutritional Screening Moderate Risk Diagnosis psychosis Pertinent Medical Hx/Surgical Hx DM, psychosis Subjective Information Pt seen sleeping in bed at time of visit. Per EMR, PO intake 100% of meals. Current Diet Order/ Nutrition Support [id number] Pertinent Medications colace, novolog, insulin, levemir, theragran Pertinent Labs 08/14 Na 134, glucose 259, POC 155-371, A1c 11.1 Nutritional Hx/Data Height 1.78 m Height (Calculated Centimeters) 177.8 Current Weight (lbs) 136.078 kg Weight (Calculated Kilograms) 136.1 Weight (Calculated Grams) 529346.7 [place] Body Weight 150 Body Mass Index (BMI) 43.0 Weight Status Obese GI Symptoms GI Symptoms None Last BM 6/2 Difficult in: None Skin Integrity/Comment: intact Current %PO Good (75-100%) Estimated Nutritional Goals BEE in Kcals: Adj wt of IBW Calories/Kcals/Kg 20-25 Kcals Calculated 4500-4630 Protein: Adj wt of IBW Protein g/k.8-1 Protein Calculated 68-85 Fluid: ml 1700-2125ml (1ml/kcal) Nutritional Problem 1. Problem Problem altered nutrition related lab Etiology hx of DM Signs/Symptoms: glucose 259, POC 155-371, A1c 11.1 Malnutrition Alert Is there a minimum of two criteria No selected? Query Text:Check all the applicable criteria. A minimum of two criteria are recommended for diagnosis of either severe or non-severe malnutrition. Malnutrition Related to Morbid Obesity Malnutrition related to morbid obesity No Intervention/Recommendation Comments 1. Continue with CCHO-60gm diet as ordered. DM to adjust insulin for optimal glycemic control. 2. Monitor PO intake, wt, labs and skin integrity 3. F/U as moderate risk in 3-5 days, 08/21-08/23 Expected Outcomes/Goals Expected Outcomes/Goals 1. PO intake to meet at least 75% of nutritional needs. 2. Wt stability, skin to remain intact, labs to approach WNL.
--- NOTE | 2017-08-23 17:58 | Progress Notes ---
DATE: 08/23/2017 PSYCHIATRIC PROGRESS NOTE SUBJECTIVE: Staff was spoken to. The patient is interviewed. Mood is noted to be less irritable today. The patient has paranoia, but denies any command hallucinations. Insight and judgment are noted to be improving. Impulse control seems to be fair today. ASSESSMENT: The patient is stabilizing. PLAN: To continue the patient with the supportive therapy and work with the lining caser with regard to the discharge of this patient. JOB# [id number]
[2017-08-23] MEDS: Insulin Detemir 100 units/mL 10mL Vial SUBQ SCH (20:56)
[2017-08-24] MEDS: INSULIN ASPART SLIDING SCALE 100 UNITS/ML UNIT SUBQ SCH ×2 (06:40→17:09)
[2017-08-24] MEDS: Aspirin 81mg Chewable Tab PO SCH (08:48)
[2017-08-24] MEDS: Benztropine 1 MG TAB PO SCH ×2 (08:49→17:14)
[2017-08-24] MEDS: Multivitamin Tab PO SCH (08:50)
--- NOTE | 2017-08-24 20:40 | Progress Notes ---
DATE: 08/24/2017 SUBJECTIVE: Staff was spoken to. The patient is interviewed. Mood is noted to be less irritable. Affect is appropriate. The patient denies any command hallucinations. No delusions are noted at this time. The patient is able to verbalize the concerns. The patient has been able to tolerate the Haldol Decanoate that was given. ASSESSMENT: The patient is stabilizing. PLAN: To discharge the patient today for followup on outpatient basis. JOB# [id number]
== END 2017-08-24 18:55 | DRG 885 ==
LOC: ER 12:23 → GERO2 14:24
PROVIDERS: ADMIT Psychiatry & Neurology Psychiatry; ATTEND Psychiatry & Neurology Psychiatry
DX: F20.0 Paranoid schizophrenia (principal); I10 Essential (primary) hypertension; E11.9 Type 2 diabetes mellitus without complications; E78.5 Hyperlipidemia, unspecified; F29 Unspecified psychosis not due to a substance or known physiological condition; F03.90 Unspecified dementia, unspecified severity, without behavioral disturbance, psychotic disturbance, mood disturbance, and anxiety; Z82.49 Family history of ischemic heart disease and other diseases of the circulatory system
CPT/HCPCS: 36415-UA; 80053-TC; 80061-TC; 80307; 80320-TC; 80329-TC; 81001-TC; 82948-90; 83036-90; 84443-TC; 85025-TC; 86592-TC; 93005; J1631; J1815; Z7610